=== PATIENT | male | born 1960 | race Hispanic/Latino ===

== ENCOUNTER 2017-11-16 15:11 | Inpatient (IN) | payer MEDICAID, OTHER ==
[2017-11-16 15:36] VITALS: BMI 42.0
[2017-11-16] MEDS ORDERED: Oxycodone/Acetaminophen 5/325 mg Tab PO STA (15:52)
--- NOTE | 2017-11-16 15:52 | ED PDOC ---
Arrival/HPI - General Chief Complaint: Lower Extremity Problem/Injury Time Seen by Provider: 11/16/17 15:50 Historian: Patient - History of Present Illness Narrative History of Present Illness (Text): 11/16/17 15:52 A 57 year old male, whose past medical history includes 3 herniated disks and chronic bronchitis, presents to the emergency department complaining of bilateral leg swelling for the past 10 days. Patient reports slight bleeding occurred on the way to emergency room. he is experiencing chest pain with difficulty breathing, and states he cannot lay flat for an extended length of time. Patient states he must be slightly elevated in bed when he sleep to reduce pain. Patient reports has previously taking oxcodone when treat recently abruptly stopped. Patient denies any fever, chills, nausea, vomiting, diarrhea , urinary symptoms, back pain, neck pain, headache, dizziness, or any other complaints. PMD: Dr. Garrison Donovan Time/Duration: Other (10 days) Symptom Onset: Gradual Symptom Course: Unchanged Activities at Onset: Light Context: Home Past Medical History - Provider Review Nursing Documentation Reviewed: Yes - Infectious Disease Hx of Infectious Diseases: None - Cardiac Hx Cardiac Disorders: No Hx Pacemaker: No - Neurological Hx Paralysis: No - Hematological/Oncological Hx Blood Transfusions: No Hx Blood Transfusion Reaction: No - Musculoskeletal/Rheumatological Hx Musculoskeletal Disorders: Yes Hx Back Pain: Yes - Psychiatric Hx Emotional Abuse: No Hx Physical Abuse: No Hx Substance Use: No - Surgical History Hx Cholecystectomy: Yes Hx Orthopedic Surgery: Yes (SPINAL SX) - Anesthesia Hx Anesthesia Reactions: Yes ("I HAVE A VERY HIGH PAIN TOLERANCE") - Suicidal Assessment Feels Threatened In Home Enviroment: No Family/Social History - Physician Review Nursing Documentation Reviewed: Yes Family/Social History: Unknown Family HX Smoking Status: Current Some Days Smoker Hx Alcohol Use: No Hx Substance Use: No Hx Substance Use Treatment: No Allergies/Home Meds Allergies/Adverse Reactions: Allergies gabapentin Allergy (Verified 11/16/17 21:44) RASH pregabalin [From Lyrica] Allergy (Verified 11/16/17 21:44) RASH shellfish derived Allergy (Verified 11/16/17 21:44) RASH MARKY Allergy (Uncoded 11/16/17 21:44) ANGIOEDEMA Home Medications: Home Meds Medication Instructions Recorded Confirmed Buprenorphine HCl/Naloxone HCl 1 francois SL BID 11/16/17 11/16/17 [Suboxone 8 mg-2 mg] tiZANidine [Zanaflex] 6 mg PO TID 11/16/17 11/16/17 Review of Systems - Physician Review All systems were reviewed & negative as marked: Yes - Review of Systems Constitutional: absent: Fevers, Night Sweats Respiratory: SOB (slight difficulty breathing) Cardiovascular: Chest Pain (slight chest pain), Other (bilteral leg swelling ). absent: Normal, Palpitations, Edema, Calf Pain, ALCOCER, Orthopnea, Syncope Gastrointestinal: absent: Diarrhea, Nausea, Vomiting Genitourinary Male: absent: Urinary Output Changes Musculoskeletal: absent: Back Pain, Neck Pain Skin: Cellulitis, Other (bleeding on leg). absent: Normal, Rash, Pruritis, Skin Lesions, Laceration, Abscess, Ulcer Neurological: absent: Headache, Dizziness Physical Exam Vital Signs Reviewed: Yes Vital Signs Temp Pulse Resp BP Pulse Ox 11/16/17 19:58 111/66 11/16/17 19:34 71 18 125/68 98 11/16/17 17:24 79 18 128/71 98 11/16/17 16:17 86 18 132/78 98 11/16/17 15:20 98.8 F 92 H 18 136/86 100 Temperature: Afebrile Blood Pressure: Normal Pulse: Tachycardic Respiratory Rate: Normal Appearance: Positive for: Well-Appearing, Non-Toxic, Comfortable Pain Distress: None Mental Status: Positive for: Alert and Oriented X 3 - Systems Exam Head: Present: Atraumatic, Normocephalic Pupils: Present: PERRL Extroacular Muscles: Present: EOMI Conjunctiva: Present: Normal Mouth: Present: Moist Mucous Membranes Neck: Present: Normal Range of Motion Respiratory/Chest: Present: Clear to Auscultation, Good Air Exchange. No: Respiratory Distress, Accessory Muscle Use Cardiovascular: Present: Regular Rate and Rhythm, Normal S1, S2. No: Murmurs Abdomen: No: Tenderness, Distention, Peritoneal Signs Back: Present: Normal Inspection Upper Extremity: No: Normal Inspection, Cyanosis Lower Extremity: Present: Edema (bilateral diffused pitting edema up to knees ) , Other (weeping wounsd on right interior leg ). No: Normal Inspection, CALF TENDERNESS, NORMAL PULSES, Cyanosis, Normal ROM, Alexander's Sign, Tenderness, Swelling, Erythema, Deformity, Neurovascularly Intact, Capillary Refill < 2 s Neurological: Present: GCS=15, CN II-XII Intact, Speech Normal Skin: Present: Warm, Other (Cellulitic infection). No: Dry, Rashes, Normal Color, Diaphoretic, Erythematous, Induration, Hot, Cold, Pale, Laceration, Abscess, Abrasion Psychiatric: Present: Alert, Oriented x 3, Normal Insight, Normal Concentration Medical Decision Making ED Course and Treatment: 11/16/17 16:00 Impression: 57 year old male presenting to the ED with bilteral leg swelling. Plan: -- EKG -- BNP -- Comp Metabolic Panel -- Thyroid stimulation hormone -- Troponin I -- CBC -- D Dimer -- oxycodone -- Ultrasound of duplex lower extremity vein bilaterally -- Reassess and disposition Prior Visits: Notes and results from previous visits were reviewed. Progress Notes: 11/16/17 18:[address] silverman to the hospitalist service. admit to tele, rule out CHF. patient to be admitted for diuresis, ambulatory dysfunction stemming from acute on chronic low back pain, PT and potential for rehab. Lower legs have the clinical appearance of venous stasis/congestion but clinical did not appears cellulitis. will defer abx to inpatient team. 11/20/17 11:53 - Lab Interpretations Lab Results: 11/16/17 16:19 11/16/17 16:19 Lab Results 11/16/17 16:19: TSH 3rd Generation 6.21 H 11/16/17 16:19: Sodium 145, Potassium 3.9, Chloride 99, Carbon Dioxide 34 H, Anion Gap 16, BUN 16, Creatinine 0.9, Est GFR ( Amer) > 60, Est GFR (Non- Af Amer) > 60, Random Glucose 89, Calcium 9.2, Magnesium 2.0, Total Bilirubin 0.5, AST 37, ALT 28, Alkaline Phosphatase 83, Troponin I < 0.01, NT-Pro-B Natriuret Pep 67.7, Total Protein 7.3, Albumin 4.4, Globulin 2.9, Albumin/ Globulin Ratio 1.5 11/16/17 16:19: D-Dimer, Quantitative 279 H 11/16/17 16:19: WBC 10.7 D, RBC 4.60, Hgb 14.4, Hct 42.7, MCV 92.8, MCH 31.3, MCHC 33.7, RDW 13.3, Plt Count 254, MPV 9.5, Gran % 43.1 L, Lymph % (Auto) 45.8 H, Stewart % (Auto) 9.0 H, Eos % (Auto) 1.7, Baso % (Auto) 0.4, Gran # 4.63, Lymph # (Auto) 4.9 H, Stewart # (Auto) 1.0 H, Eos # (Auto) 0.2, Baso # (Auto) 0.04 - RAD Interpretation Radiology Orders: 11/16/17 15:51 DUPLEX LOWER EXTRM VEIN BILAT [US] Stat 11/16/17 16:45 ANGIO CHEST PE PROTOCOL [CT] Stat - EKG Interpretation EKG Interpretation (Text): 11/16/17 16:53 1612: sinus rhythm at 85 bpm, nml qrs, nml axis, poor r wave progression, no acute sttw abn Interpreted by ED Physician: Yes - Medication Orders Current Medication Orders: Docusate Sodium (Colace) 100 mg PO DAILY [facility] Last Admin: 11/20/17 09:43 Dose: Not Given Non-Admin Reason: Patient Refused Furosemide (Lasix) 20 mg IVP Q12 [facility] Last Admin: 11/20/17 09:37 Dose: 20 mg MAR Blood Pressure Document 11/20/17 09:37 JANETTE (Rec: 11/20/17 09:38 JANETTE [facility] [id number]) Blood Pressure Blood Pressure (100/60-150/90) 127/71 IVP Administration Document 11/20/17 09:37 JANETTE (Rec: 11/20/17 09:38 JANETTE [facility] [id number]) Charges for Administration # of IVP Administrations 1 Heparin Sodium (Porcine) (Heparin) 5,000 units SC Q12 JUAN PRN Reason: Protocol Last Admin: 11/20/17 09:36 Dose: 5,000 units Subcutaneous Administrations Document 11/20/17 09:36 JANETTE (Rec: 11/20/17 09:37 JANETTE [facility] [id number]) Injection Site MAR Injection Site Right Abdomen Charges for Administration # of Subcutaneous Administrations 1 Vancomycin HCl (Vancomycin 1gm) 1 gm in 250 mls @ 167 mls/hr IVPB Q12H JUAN PRN Reason: Protocol Last Admin: 11/20/17 09:41 Dose: 167 mls/hr eMAR Start Stop Document 11/20/17 09:41 JANETTE (Rec: 11/20/17 09:41 JANETTE [facility] [id number]) Intravenous Solution Start Date 11/20/17 Start Time 09:41 Lactic Acid (Lac-Hydrin 12% Lotion (225 G)) 1 gm EXT QD7 JUAN Last Admin: 11/20/17 09:36 Dose: 1 applic Levalbuterol HCl (Xopenex) 1.25 mg IH [id number] PRN PRN Reason: Shortness of Breath Lidocaine (Lidoderm) 1 ea TD DAILY JUAN Last Admin: 11/19/17 09:13 Dose: 1 ea MAR Transdermal Patch Site Document 11/19/17 09:13 [id number] (Rec: 11/19/17 09:13 [id number]) Transdermal Patch Site Transdermal Patch Site Right Lower Back Morphine Sulfate (Morphine) 2 mg IVP Q4H PRN PRN Reason: Pain, moderate (4-7) Last Admin: 11/20/17 09:39 Dose: 2 mg MAR Pain Assessment Document 11/20/17 09:39 JANETTE (Rec: 11/20/17 09:39 JANETTE [facility] [id number]) Pain Reassessment Is this a pain reassessment? No Presence of Pain Presence of Pain Yes Pain Scale Used Pain Scale Used Numeric Location Left, Right or Bilateral Bilateral Pain Location Body Site Leg Description Description Intermittent Intensity of Pain at present 7 IVP Administration Document 11/20/17 09:39 JANETTE (Rec: 11/20/17 09:39 JANETTE [facility] [id number]) Charges for Administration # of IVP Administrations 1 Pantoprazole Sodium (Protonix Ec Tab) 40 mg PO 0600 [facility] Last Admin: 11/20/17 05:24 Dose: 40 mg Discontinued Medications Furosemide (Lasix) 40 mg IVP STAT STA Stop: 11/16/17 18:20 Last Admin: 11/16/17 19:58 Dose: 20 mg Comments: 20 given BP 111/66 MAR Blood Pressure Document 11/16/17 19:58 LA (Rec: 11/16/17 19:59 LA [id number]) Blood Pressure Blood Pressure (100/60-150/90) 111/66 IVP Administration Document 08/23/18 19:58 LA (Rec: 11/16/17 19:59 LA [id number]) Charges for Administration # of IVP Administrations 1 Furosemide (Lasix) 20 mg IVP Q8 JUAN Levothyroxine Sodium (Synthroid) 25 mcg PO 0600 JUAN Last Admin: 11/20/17 05:23 Dose: 25 mcg Morphine Sulfate (Morphine) 4 mg IVP Q4H PRN PRN Reason: Pain, severe (8-10) Last Admin: 11/17/17 06:48 Dose: 4 mg [facility] Pain Assessment Document 11/17/17 06:48 CDL (Rec: 11/17/17 06:48 [id number][facility] Pain Reassessment Is this a pain reassessment? No Sleep Is patient sleeping during reassessment? No Presence of Pain Presence of Pain Yes Pain Scale Used Pain Scale Used Numeric Location Upper or Lower Lower Pain Location Body Site Back Description Description Constant Intensity of Pain at present 8 Pain Behavior Restlessness Alleviating Factors/Management Medication Techniques Alleviating Factors Medication IVP Administration Document 11/17/17 06:48 CDL (Rec: 11/17/17 06:48 CDL [facility] [id number]) Charges for Administration # of IVP Administrations 1 Oxycodone/Acetaminophen (Percocet 5/325 Mg Tab) 2 tab PO STAT STA Stop: 11/16/17 15:53 Last Admin: 11/16/17 16:16 Dose: 2 tab [facility] Pain Assessment Document 11/16/17 16:16 LA (Rec: 11/16/17 16:16 LA [id number]) Pain Reassessment Is this a pain reassessment? No Sleep Is patient sleeping during reassessment? No Presence of Pain Presence of Pain Yes Pain Scale Used Pain Scale Used Numeric Location Left, Right or Bilateral Bilateral Upper or Lower Lower Pain Location Body Site Leg Description Description Intermittent Intensity of Pain at present 5 Re-Assess: MAR Pain Assessment Document 11/16/17 17:16 LA (Rec: 11/16/17 19:44 LA [id number]) Pain Reassessment Is this a pain reassessment? Yes Sleep Is patient sleeping during reassessment? No Presence of Pain Presence of Pain No Pneumococcal Polyvalent Vaccine (Pneumovax 23 Vaccine) 0.5 ml IM .ONCE ONE Stop: 08/23/18 23:40 - Scribe Statement The provider has reviewed the documentation as recorded by the Francisco Parker All medical record entries made by the Scribe were at my direction and personally dictated by me. I have reviewed the chart and agree that the record accurately reflects my personal performance of the history, physical exam, medical decision making, and the department course for this patient. I have also personally directed, reviewed, and agree with the discharge instructions and disposition. Disposition/Present on Arrival - Present on Arrival Any Indicators Present on Arrival: No History of DVT/PE: No History of Uncontrolled Diabetes: No Urinary Catheter: No History of Decub. Ulcer: No History Surgical Site Infection Following: None - Disposition Have Diagnosis and Disposition been Completed?: Yes Diagnosis: Edema Disposition: HOSPITALIZED Disposition Time: 18:23 Patient Plan: Admission Patient Problems: Current Active Problems Problem Status Onset Edema Acute Condition: STABLE
[2017-11-16 16:32] LABS: BASO # 0.04 K/mm3 (0.0-2.0); BASO % 0.4 % (0.0-3.0); EOS # 0.2 (0.0-0.7); EOS % 1.7 % (1.5-5.0); GRAN # 4.63 (1.4-6.5); GRAN % 43.1 % (50.0-68.0); HEMOGLOBIN 14.4 g/dL (14.0-18.0); LYMPH # 4.9 (1.2-3.4); LYMPH % 45.8 % (22.0-35.0); MEAN CELL VOLUME 92.8 fl (80.0-105.0); MEAN CORPUSCULAR HEMOGLOBIN 31.3 pg (25.0-35.0); MEAN CORPUSCULAR HGB CONC 33.7 g/dl (31.0-37.0); MEAN PLATELET VOLUME 9.5 fl (7.0-11.0); RBC 4.6 10^6/uL (3.5-6.1); RED CELL DISTRIBUTION WIDTH 13.3 % (11.5-14.5); WHITE BLOOD COUNT 10.7 10^3/ul (4.5-11.0)
[2017-11-16 16:37] LABS: ALB/GLOB RATIO 1.5 (1.1-1.8); ALBUMIN 4.4 g/dL (3.0-4.8); ALT/SGPT 28 U/L (7-56); AST/SGOT 37 U/L (17-59); BLOOD UREA NITROGEN 16 mg/dL (7-21); CALCIUM 9.2 mg/dL (8.4-10.5); GFR NON-AFRICAN AMERICAN > 60
[2017-11-16 16:49] LABS: B-TYPE NATRIURETIC PEPTIDE 67.7 pg/mL (0-450); TROPONIN I < 0.01 ng/mL
--- NOTE | 2017-11-16 17:59 | US ---
HISTORY: Leg pain and swelling. Evaluate for DVT PHYSICIAN(S): Blade Parekh MD. TECHNIQUE: Duplex sonography and color-flow Doppler with graded compression were used to evaluate the deep venous systems of both lower extremities. The exam is limited by edema. FINDINGS: The visualized deep venous systems of both lower extremities are sonographically normal and compressible. Normal wave forms and augmentation are seen. There is no sonographic evidence for deep venous thrombosis in the visualized segments of both lower extremities. IMPRESSION: No sonographic evidence for deep venous thrombosis in the visualized segments of both lower extremities.
--- NOTE | 2017-11-16 18:09 | CT ---
CTA chest PE protocol Indication: Pulmonary embolism Technique: Contiguous axial images were obtained through the chest with intravenous contrast enhancement. Sagittal and coronal reconstructions were generated and reviewed. This CT exam was performed using 1 or more of the following dose reduction techniques: Automated exposure control, adjustment of the MAA and/or kV according to patient size, and/or use of iterative reconstruction technique. IV Contrast: 123 mL Omnipaque 350 Radiation dose (DLP): 565.68 MGy-cm. Comparison: Lung screening low dose CT performed 04/03/15 Findings: Visualized portions of the inferior thyroid gland appear unremarkable. The mediastinal and hilar vascular structures appear within normal limits. The heart appears within normal limits of size. No large central or segmental pulmonary embolus evident. No focal consolidation. No pleural effusion. No pneumothorax. No suspicious pulmonary nodules measuring greater than 5 mm. Limited visualized portions of the upper abdomen: Cholecystectomy. Degenerative changes of the spine. Impression: No large central or segmental pulmonary embolus identified.
--- NOTE | 2017-11-16 18:53 | CARD ---
APPROVED REPORT Date of service: 11/16/2017 EKG Measurement Heart [id number] CA [id number] [id number] <Conclusion> Sinus rhythm with premature ventricular complexes or fusion complexes Possible Anterior infarct, age undetermined Abnormal ECG
--- NOTE | 2017-11-16 22:07 | CP.PCM.HP ---
History of Present Illness - History of Present Illness History of Present Illness: Pepper Cid, PGY-1, Internal Medicine History and Physical for Dr. Norwood CC: bilateral lower extremity hyperpigmentation and swelling 57 year old male with past medical history of chronic bronchitis, substance abuse, and 3 herniated disks presents with bilateral lower extremity hyperpigmentation, edema, and pain. Patient reports that the swelling started 10 days ago. Patient reports throbbing pain started when bilateral lower extremity edema started. Patient has had difficulty walking the past few days due to severity of the swelling. Patient reports warmth on bilateral lower extremities when the swelling first began but reported that now the extremities are cool. Patient reports mild drainage from the right lower extremity with yellow discharge. Patient reports having bilateral lower extremity swelling in the past and was treated successfully with lasix. Patient reports no exacerbating or remitting factors. Patient also reports fever, back pain that radiates down his left leg with associated numbness and tingling, and dizziness. Patient reports frontal headache for that started 10 days ago and stopped 6 days ago. Pain did not radiate to his neck and was relieved with ibuprofen. Patient reports 40-50 lb weight gain. Patient currently denies chest pain, heart palpitations, shortness of breath, nausea, vomiting, constipation, diarrhea, abdominal pain, dysuria, and hematuria. PMH: as stated above PSH: cholecystectomy, tonsillectomy Allergies: gabapentin, pregabalin, shellfish FMHx: Mother from breast cancer and HTN. SHx: smoked 1/2 ppd for 20 years. Stopped 8 months ago. Denies alcohol and recreational drug history Medication: reports taking oxycontin 120 mg Q8, percocet 10/325, and zanaplex for sleep. PMD: Dr. Karyna Donovan Present on Admission - Present on Admission Any Indicators Present on Admission: No History of DVT/PE: No History of Uncontrolled Diabetes: No Review of Systems - Constitutional Constitutional: Weight Gain. absent: Anorexia, Chills, Fever - EENT Eyes: absent: Blurred Vision Ears: absent: Ear Pain Nose/Mouth/Throat: absent: Epistaxis - Cardiovascular Cardiovascular: Diaphoresis, Edema. absent: Chest Pain - Respiratory Respiratory: absent: Dyspnea - Gastrointestinal Gastrointestinal: absent: Abdominal Pain, Constipation, Diarrhea, Nausea, Vomiting - Genitourinary Genitourinary: absent: Dysuria, Hematuria - Musculoskeletal Musculoskeletal: Abnormal Gait, Back Pain, Radiating Pain into Limb - Integumentary Integumentary: Wounds Additional comments: hyperpigmentation and swelling of bilateral lower extremities - Neurological Neurological: Numbness, Tingling - Psychiatric Psychiatric: absent: Anxiety, Depression Past Patient History - Infectious Disease Hx of Infectious Diseases: None - Past Social History Smoking Status: Current Some Days Smoker - CARDIAC Hx Cardiac Disorders: No Hx Pacemaker: No - NEUROLOGICAL Hx Paralysis: No - HEMATOLOGICAL/ONCOLOGICAL Hx Blood Transfusions: No Hx Blood Transfusion Reaction: No - MUSCULOSKELETAL/RHEUMATOLOGICAL Hx Musculoskeletal Disorders: Yes Hx Back Pain: Yes - PSYCHIATRIC Hx Emotional Abuse: No Hx Physical Abuse: No Hx Substance Use: No - SURGICAL HISTORY Hx Cholecystectomy: Yes Hx Orthopedic Surgery: Yes (SPINAL SX) - ANESTHESIA Hx Anesthesia Reactions: Yes ("I HAVE A VERY HIGH PAIN TOLERANCE") Meds Allergies/Adverse Reactions: Allergies Allergy/AdvReac Type Severity Reaction Status Date / Time gabapentin Allergy RASH Verified 11/16/17 21:44 pregabalin [From Lyrica] Allergy RASH Verified 11/16/17 21:44 shellfish derived Allergy RASH Verified 11/16/17 21:44 MARKY Allergy ANGIOEDEMA Uncoded 11/16/17 21:44 Physical Exam - Constitutional Appears: Well, Non-toxic, No Acute Distress - Head Exam Head Exam: ATRAUMATIC, NORMAL INSPECTION, NORMOCEPHALIC - Eye Exam Eye Exam: EOMI, PERRL - ENT Exam ENT Exam: Mucous Membranes Moist - Respiratory Exam Respiratory Exam: Clear to Auscultation Bilateral, NORMAL BREATHING PATTERN - Cardiovascular Exam Cardiovascular Exam: REGULAR RHYTHM, RRR - GI/Abdominal Exam GI & Abdominal Exam: Normal Bowel Sounds, Soft. absent: Tenderness - Extremities Exam Additional comments: bilateral lower extremity hyperpigmentation, cool to touch, multiple abrasions on right lower extremity with minimal yellow drainage, +3-4 pitting edema bilaterally - Back Exam Back exam: paraspinal tenderness (right sided lumbar) - Neurological Exam Neurological exam: Alert, CN II-XII Intact, Oriented x3 - Psychiatric Exam Psychiatric exam: Normal Affect, Normal Mood - Skin Skin Exam: Dry, Intact Additional comments: bilateral lower extremity hyperpigmentation. lesions present on right lower extremity with yellow discharge Results - Vital Signs Recent Vital Signs: Last Vital Signs Temp 98.7 F 11/16/17 20:00 Pulse 72 11/16/17 20:00 Resp 18 11/16/17 20:00 BP 134/92 H 11/16/17 21:56 Pulse Ox 99 11/16/17 20:00 - Labs Result Diagrams: 11/16/17 16:19 11/17/17 05:30 - Impressions Impression: NSR with PVC HR: 85 TN: 140 QRS: 80 QTc: 416 Assessment & Plan - Assessment and Plan (Free Text) Assessment: 57 year old male with past medical history of chronic bronchitis and 3 herniated disks presents with bilateral lower extremity hyperpigmentation, edema , and pain. Patient will be admitted for bilateral lower extremity edema 2/2 to chronic venous insufficiency vs. peripheral artery disease. Plan: Bilateral lower extremity edema 2/2 to chronic venous insufficiency vs. peripheral artery disease vs. myxedema -Patient with bilateral lower extremity hyperpigmentation, edema, cool to touch -Lower extremity ultrasound: shows no evidence of DVT -Wound care consulted -TSH: 6.21. T4 ordered to evaluate for possible myxedema -Strict I and Os -Daily weight -Elevate legs to use gravity to enhance circulation -lasix 20 mg IVP Q12 Questionable CHF -No previous echocardiogram in [facility] records. -Patient has had multiple episodes of bilateral lower extremity edema treated with lasix. -HgbA1c, lipid panel ordered to evaluate for possible etiology of CHF. -EKG: NSR with PVC. HR: 85 -Trop<0.01 -Normal LFTs, so unlikely hepatic congestion -Echocardiogram ordered to evaluate for possible CHF and etiology of CHF -BNP ordered -lasix 20 mg IVP Q12 Chronic bronchitis -O2 saturation: 99% on room air -Xopenex PRN ordered. -Continue to monitor History of constipation -Docusate 100 mg daily History of herniated disks -Positive straight left raise test on left -Patient has been on opiod medication at home -Patient started on morphine 4 mg Q4PRN for pain. -Lidocaine patch 5% daily History of opiod abuse -Patient started on morphine 4 mg Q4PRN for pain -Lidocaine patch 5% daily -Patient counseled about importance of opiod use cessation. -Patient takes suboxone 8mg-2mg BID at home. Elevated D-Dimer -D-Dimer: 279. -Patient has bilateral lower extremity edema. -Bilateral duplex lower extremity ultrasound shows no sign of DVT -CTA of chest: no large central or segmental pulmonary embolus -DVT prophylaxis: heparin 5000 U SubQ daily GI prophylaxis: protonix 40 mg daily Patient plan discussed with Dr. Norwood. - Date & Time Date: 11/16/17 Time: 22:30
[2017-11-16] MEDS ORDERED: Levalbuterol 1.25 MG/3 ML Inhal Soln UD IH PRN (22:38)
[2017-11-16] MEDS ORDERED: Pneumococcal 23-Valent Vaccine IM ONE (23:39)
[2017-11-17] MEDS: Morphine 4 mg/ml ISec IVP PRN ×2 (00:19→06:48)
--- NOTE | 2017-11-17 01:19 | CP.PCM.PN ---
Subjective - Date & Time of Evaluation Date of Evaluation: 11/17/17 Time of Evaluation: 01:17 - Subjective Subjective: Patient was seen for follow up. Medical record was reviewed. Has already been evaluated by team. He has no complaints now. Is not in acute distress. Has been ambulating. Vital signs are stable. Rx, Observe. Cont.Management. Objective - Vital Signs/Intake and Output Vital Signs (last 24 hours): Temp Pulse Resp BP Pulse Ox 98.7 F 72 18 134/92 H 99 11/16/17 23:14 11/16/17 23:14 11/16/17 23:14 11/16/17 23:14 11/16/17 20:00 - Medications Medications: Current Medications Docusate Sodium (Colace) 100 mg PO DAILY [facility] Furosemide (Lasix) 20 mg IVP Q12 [facility] Last Admin: 11/16/17 21:56 Dose: 20 mg Heparin Sodium (Porcine) (Heparin) 5,000 units SC Q12 JUAN PRN Reason: Protocol Last Admin: 11/16/17 21:55 Dose: 5,000 units Levalbuterol HCl (Xopenex) 1.25 mg IH [id number] PRN PRN Reason: Shortness of Breath Lidocaine (Lidoderm) 1 ea TD DAILY [facility] Morphine Sulfate (Morphine) 4 mg IVP Q4H PRN PRN Reason: Pain, severe (8-10) Last Admin: 11/17/17 00:19 Dose: 4 mg Pantoprazole Sodium (Protonix Ec Tab) 40 mg PO 0600 [facility]
[2017-11-17] MEDS: Pantoprazole 40 mg EC Tab PO SCH (05:42)
[2017-11-17 06:43] LABS: BASO # 0.04 K/mm3 (0.0-2.0); BASO % 0.4 % (0.0-3.0); EOS # 0.2 (0.0-0.7); EOS % 1.9 % (1.5-5.0); GRAN # 3.67 (1.4-6.5); GRAN % 40.3 % (50.0-68.0); HEMOGLOBIN 13.2 g/dL (14.0-18.0); LYMPH # 4.4 (1.2-3.4); LYMPH % 47.8 % (22.0-35.0); MEAN CELL VOLUME 92.8 fl (80.0-105.0); MEAN CORPUSCULAR HEMOGLOBIN 30.8 pg (25.0-35.0); MEAN CORPUSCULAR HGB CONC 33.2 g/dl (31.0-37.0); MEAN PLATELET VOLUME 9.4 fl (7.0-11.0); MONO # 0.9 (0.1-0.6); MONO % 9.6 % (1.0-6.0); RBC 4.28 10^6/uL (3.5-6.1); RED CELL DISTRIBUTION WIDTH 13.5 % (11.5-14.5); WHITE BLOOD COUNT 9.1 10^3/ul (4.5-11.0)
[2017-11-17 06:48] LABS: ALB/GLOB RATIO 1.4 (1.1-1.8); ALBUMIN 3.6 g/dL (3.0-4.8); ALT/SGPT 23 U/L (7-56); AST/SGOT 23 U/L (17-59); BLOOD UREA NITROGEN 20 mg/dL (7-21); CALCIUM 8.6 mg/dL (8.4-10.5); GFR NON-AFRICAN AMERICAN > 60; HDL CHOLESTEROL 44 mg/dL (29-60)
[2017-11-17 07:10] LABS: LDL CHOLESTEROL 87 mg/dL (0-129)
[2017-11-17] MEDS ORDERED: Morphine 4 mg/ml ISec IVP PRN (10:22)
[2017-11-17] MEDS: Lidocaine 5% Patch TD SCH (10:34)
[2017-11-17] MEDS: Vancomycin 1gm in NS 250ml 1 GM/250 ML BAG IVPB SCH ×2 (10:34→21:53)
[2017-11-17] MEDS ORDERED: Piperacillin/Tazobact 3.375 gm 100 ML IVPB SCH (12:00)
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
--- NOTE | 2017-11-17 14:30 | CARD ---
APPROVED REPORT Date of service: 11/17/2017 EXAM: Two-dimensional and M-mode echocardiogram with Doppler and color Doppler. INDICATION Congestive Heart Failure 2D DIMENSIONS Left Atrium (2D)4.1 (1.6-4.0cm)IVSd1.2 (0.7-1.1cm) LVDd4.8 (3.9-5.9cm)PWd1.2 (0.7-1.1cm) LVDs3.2 (2.5-4.0cm)FS (%) 33.8 % LVEF (%)62.6 (>50%) M-Mode DIMENSIONS Aortic Root3.30 (2.2-3.7cm)Aortic Cusp Exc.1.70 (1.5-2.0cm) Aortic Valve AoV Peak Rcsydyqq436.0cm/Deepthi Peak GR.10mmHg Mitral Valve MV E Jfujsnfx09.2cm/sMV A Qrjpembd05.3cm/sE/A ratio0.7 TDI Lateral E' Peak V9.26cm/sMedial E' Peak V7.90cm/sE/Lateral E'7.0 E/Medial E'8.3 Pulmonary Valve PV Peak Nubxyrar70.9cm/sPV Peak Grad.3mmHg Tricuspid Valve TR Peak Ntmusqas131xn/sRAP [id number] Peak Gr.7mmHg [id number] LEFT VENTRICLE The left ventricle is normal size. There is normal left ventricular wall thickness. The left ventricular function is normal. The left ventricular ejection fraction is within the normal range. There is normal LV segmental wall motion. Transmitral Doppler flow pattern is Grade I-abnormal relaxation pattern. RIGHT VENTRICLE The right ventricle is normal size. There is normal right ventricular wall thickness. The right ventricular systolic function is normal. ATRIA The left atrium is borderline dilated. The right atrium size is normal. AORTIC VALVE The aortic valve is not well visualized. No aortic regurgitation is present. There is no aortic valvular stenosis. MITRAL VALVE The mitral valve is not well visualized. There is no mitral valve regurgitation noted. There is no mitral valve stenosis. TRICUSPID VALVE The tricuspid valve is normal in structure. There is no tricuspid valve regurgitation noted. PULMONIC VALVE The pulmonary valve is normal in structure. There is no pulmonic valvular regurgitation. GREAT VESSELS The aortic root is normal in size. The IVC is normal in size and collapses >50% with inspiration. PERICARDIAL EFFUSION There is a trace loculated anterior pericardial effusion. <Conclusion> The left ventricle is normal size. There is normal left ventricular wall thickness. The left ventricular function is normal. The left ventricular ejection fraction is within the normal range. There is normal LV segmental wall motion. Transmitral Doppler flow pattern is Grade I-abnormal relaxation pattern.
--- NOTE | 2017-11-17 16:01 | CP.PCM.CON ---
<Jocelyn Montgomery - Last Filed: 11/17/17 15:53> History of Present Illness - History of Present Illness History of Present Illness: Podiatry Consult note: Dr. Pena 57 year old male with PMHx of 3 herniated disks and chronic bronchitis was seen and evaluated for bilateral LE edema. Patient reports that he has his legs swollen for a long time. States that he felt some chest pain with breathing difficulty when presenting to the ED. Patient also complains that he was on oxcodone when treatment recently abruptly stopped. Patient denies of recent F/N/ V/C. Denies of any other pedal complains at this time. PMHx: 3 herniated disks and chronic bronchitis PSHx: cholecystectomy, tonsillectomy Allergies: gabapentin, pregabalin, shellfish SHx: smoked 1/2 ppd for 20 years. Stopped 8 months ago. Denies alcohol and recreational drug history Review of Systems - Constitutional Constitutional: As Per HPI Past Patient History - Infectious Disease Hx of Infectious Diseases: None - Past Social History Smoking Status: Current Some Days Smoker - CARDIAC Hx Cardiac Disorders: No Hx Pacemaker: No - PULMONARY Hx Respiratory Disorders: Yes (USED TO SMOKE CIGARETTES ,QUIT.) Hx Chronic Obstructive Pulmonary Disease (COPD): Yes - NEUROLOGICAL Hx Paralysis: No - HEENT Hx HEENT Problems: No - RENAL Hx Chronic Kidney Disease: No - ENDOCRINE/METABOLIC Hx Endocrine Disorders: No - HEMATOLOGICAL/ONCOLOGICAL Hx Blood Transfusions: No Hx Blood Transfusion Reaction: No - INTEGUMENTARY Hx Dermatological Problems: Yes Other/Comment: 11-16-17 BILATERAL LE PITTING EDEMA +3 UP TO HIS KNEES. WEEPING WOUND TO RIGHT CAVAZOS BONE.SOME BLOOD. ERYTHEMA. - MUSCULOSKELETAL/RHEUMATOLOGICAL Hx Musculoskeletal Disorders: Yes Hx Back Pain: Yes - GASTROINTESTINAL Hx Gastrointestinal Disorders: Yes (CONSTIPATION) Hx Gall Bladder Disease: Yes (CHOLEYCSTECTOMY) - GENITOURINARY/GYNECOLOGICAL Hx Genitourinary Disorders: No - PSYCHIATRIC Hx Emotional Abuse: No Hx Physical Abuse: No Hx Substance Use: No - SURGICAL HISTORY Hx Cholecystectomy: Yes Hx Orthopedic Surgery: Yes (SPINAL SX) - ANESTHESIA Hx Anesthesia Reactions: Yes ("I HAVE A VERY HIGH PAIN TOLERANCE") Meds Allergies/Adverse Reactions: Allergies Allergy/AdvReac Type Severity Reaction Status Date / Time gabapentin Allergy RASH Verified 11/16/17 21:44 pregabalin [From Lyrica] Allergy RASH Verified 11/16/17 21:44 shellfish derived Allergy RASH Verified 11/16/17 21:44 MARKY Allergy ANGIOEDEMA Uncoded 11/16/17 21:44 - Medications Medications: Current Medications Docusate Sodium (Colace) 100 mg PO DAILY [facility] Last Admin: 11/17/17 10:00 Dose: Not Given Furosemide (Lasix) 20 mg IVP Q12 [facility] Last Admin: 11/17/17 10:35 Dose: 20 mg Heparin Sodium (Porcine) (Heparin) 5,000 units SC Q12 JUAN PRN Reason: Protocol Last Admin: 11/17/17 10:35 Dose: 5,000 units Vancomycin HCl (Vancomycin 1gm) 1 gm in 250 mls @ 167 mls/hr IVPB Q12H [facility] PRN Reason: Protocol Last Admin: 11/17/17 10:34 Dose: 167 mls/hr Levalbuterol HCl (Xopenex) 1.25 mg IH [id number] PRN PRN Reason: Shortness of Breath Levothyroxine Sodium (Synthroid) 25 mcg PO 0600 [facility] Lidocaine (Lidoderm) 1 ea TD DAILY [facility] Last Admin: 11/17/17 10:34 Dose: 1 ea Morphine Sulfate (Morphine) 2 mg IVP Q4H PRN PRN Reason: Pain, moderate (4-7) Pantoprazole Sodium (Protonix Ec Tab) 40 mg PO 0600 [facility] Last Admin: 11/17/17 05:42 Dose: 40 mg Physical Exam - Constitutional Appears: Well, Non-toxic, No Acute Distress - Extremities Exam Additional comments: Bilateral LE exam VASC: DP/PT pulses are faintly palpable, Cap refill time: < 3 sec to all digits , Temp gradient: cool to cool from proximal to distal, +3 pitting edema noted diffusely on bilateral LE and dorsum of the foot DERM: no open lesions, no erythema, no clinical suspicion of active infection NEURO: Protective sensation grossly intact ORTHO: no pain on palpation of the calf, MMT: 5/5 in all 4 direction at the ankle joint - Neurological Exam Neurological exam: Alert, Oriented x3 - Psychiatric Exam Psychiatric exam: Normal Affect, Normal Mood Results - Vital Signs Recent Vital Signs: Last Vital Signs Temp 98.7 F 11/17/17 12:00 Pulse 85 08/24/18 12:00 Resp 17 11/17/17 12:00 BP 120/74 11/17/17 12:00 Pulse Ox 95 11/17/17 06:00 - Labs Result Diagrams: 11/17/17 05:30 11/17/17 05:30 Labs: Laboratory Results - last 24 hr 11/16/17 11/17/17 11/17/17 23:15 05:30 05:30 WBC RBC Hgb Hct MCV MCH MCHC RDW Plt Count MPV Gran % Lymph % (Auto) Tucker % (Auto) Eos % (Auto) Baso % (Auto) Gran # Lymph # (Auto) [place] # (Auto) Eos # (Auto) Baso # (Auto) Sodium 140 Potassium 3.7 Chloride 98 Carbon Dioxide 35 H Anion Gap 11 BUN 20 Creatinine 0.9 Est GFR ( Amer) > 60 Est GFR (Non-Af Amer) > 60 Random Glucose 87 Hemoglobin A1c Calcium 8.6 Phosphorus 3.8 Magnesium 1.9 Total Bilirubin 0.4 AST 23 ALT 23 Alkaline Phosphatase 66 NT-Pro-B Natriuret Pep 56.7 Total Protein 6.1 Albumin 3.6 Globulin 2.5 Albumin/Globulin Ratio 1.4 Triglycerides 85 Cholesterol 157 LDL Cholesterol Direct 87 HDL Cholesterol 44 Free T4 0.86 11/17/17 11/17/17 05:30 05:30 WBC 9.1 RBC 4.28 Hgb 13.2 L Hct 39.7 L MCV 92.8 MCH 30.8 MCHC 33.2 RDW 13.5 Plt Count 216 MPV 9.4 Gran % 40.3 L Lymph % (Auto) 47.8 H [place] % (Auto) 9.6 H Eos % (Auto) 1.9 Baso % (Auto) 0.4 Gran # 3.67 Lymph # (Auto) 4.4 H Tucker # (Auto) 0.9 H Eos # (Auto) 0.2 Baso # (Auto) 0.04 Sodium Potassium Chloride Carbon Dioxide Anion Gap BUN Creatinine Est GFR ( Amer) Est GFR (Non-Af Amer) Random Glucose Hemoglobin A1c 5.3 Calcium Phosphorus Magnesium Total Bilirubin AST ALT Alkaline Phosphatase NT-Pro-B Natriuret Pep Total Protein Albumin Globulin Albumin/Globulin Ratio Triglycerides Cholesterol LDL Cholesterol Direct HDL Cholesterol Free T4 Assessment & Plan - Assessment and Plan (Free Text) Assessment: 57 year old male was evaluated for b/l LE edema secondary to venous insufficiency and possible CHF Plan: Patient seen and evaluated Discussed with attending Dr. Pena Labs, vitals and charts reviewed - afebrile, no leukocytosis Strict I/O Continue Lasix CLAIR bandages applied to b/l LE Compression stocking b/l LASHON/PVR ordered Educated patient to elevate b/l LE whenever possible Patient is stable from podiatry standpoint Thank you for the podiatry consult and allowing to take part in patient care - Date & Time Date: 11/17/17 Time: 16:08 <Kristopher Pena - Last Filed: 11/18/17 08:13> Meds - Medications Medications: Current Medications Docusate Sodium (Colace) 100 mg PO DAILY [facility] Last Admin: 11/17/17 10:00 Dose: Not Given Furosemide (Lasix) 20 mg IVP Q12 JUAN Last Admin: 11/17/17 21:16 Dose: 20 mg Heparin Sodium (Porcine) (Heparin) 5,000 units SC Q12 JUAN PRN Reason: Protocol Last Admin: 11/17/17 21:17 Dose: 5,000 units Vancomycin HCl (Vancomycin 1gm) 1 gm in 250 mls @ 167 mls/hr IVPB Q12H JUAN PRN Reason: Protocol Last Admin: 11/17/17 21:53 Dose: 167 mls/hr Levalbuterol HCl (Xopenex) 1.25 mg IH [id number] PRN PRN Reason: Shortness of Breath Levothyroxine Sodium (Synthroid) 25 mcg PO 0600 [facility] Last Admin: 11/18/17 05:36 Dose: 25 mcg Lidocaine (Lidoderm) 1 ea TD DAILY [facility] Last Admin: 11/17/17 10:34 Dose: 1 ea Morphine Sulfate (Morphine) 2 mg IVP Q4H PRN PRN Reason: Pain, moderate (4-7) Last Admin: 11/17/17 21:04 Dose: 2 mg Pantoprazole Sodium (Protonix Ec Tab) 40 mg PO 0600 [facility] Last Admin: 11/18/17 05:40 Dose: 40 mg Results - Vital Signs Recent Vital Signs: Last Vital Signs Temp 98.7 F 11/18/17 06:00 Pulse 83 11/18/17 06:00 Resp 19 11/18/17 06:00 BP 150/103 H 11/18/17 06:00 Pulse Ox 94 L 11/18/17 06:00 - Labs Result Diagrams: 11/18/17 06:30 11/18/17 06:30 Labs: Laboratory Results - last 24 hr 11/17/17 11/17/17 11/18/17 05:30 05:30 06:30 WBC 7.5 RBC 4.36 Hgb 13.4 L Hct 39.8 L MCV 91.3 MCH 30.7 MCHC 33.7 RDW 13.1 Plt Count 223 MPV 9.8 Gran % 53.8 Lymph % (Auto) 35.3 H Tucker % (Auto) 8.7 H Eos % (Auto) 1.9 Baso % (Auto) 0.3 Gran # 4.01 Lymph # (Auto) 2.6 Tucker # (Auto) 0.7 H Eos # (Auto) 0.1 Baso # (Auto) 0.02 Sodium Potassium Chloride Carbon Dioxide Anion Gap BUN Creatinine Est GFR ( Amer) Est GFR (Non-Af Amer) Random Glucose Hemoglobin A1c 5.3 Calcium Phosphorus Magnesium Total Bilirubin AST ALT Alkaline Phosphatase Total Protein Albumin Globulin Albumin/Globulin Ratio Free T4 0.86 11/18/17 06:30 WBC RBC Hgb Hct MCV MCH MCHC RDW Plt Count MPV Gran % Lymph % (Auto) Tucker % (Auto) Eos % (Auto) Baso % (Auto) Gran # Lymph # (Auto) Tucker # (Auto) Eos # (Auto) Baso # (Auto) Sodium 139 Potassium 3.6 Chloride 97 L Carbon Dioxide 33 Anion Gap 13 BUN 16 Creatinine 0.8 Est GFR ( Amer) > 60 Est GFR (Non-Af Amer) > 60 Random Glucose 97 Hemoglobin A1c Calcium 8.7 Phosphorus 2.9 Magnesium 2.0 Total Bilirubin 0.6 AST 22 ALT 25 Alkaline Phosphatase 72 Total Protein 6.6 Albumin 4.0 Globulin 2.6 Albumin/Globulin Ratio 1.5 Free T4 Attending/Attestation - Attestation I have personally seen and examined this patient.: Yes I have fully participated in the care of the patient.: Yes I have reviewed all pertinent clinical information: Yes
--- NOTE | 2017-11-17 20:26 | CP.PCM.CON ---
History of Present Illness - History of Present Illness History of Present Illness: 57 year old male with PMH of chronic bronchitis, chronic pain syndrome, substance abuse, lumbar disc herniation, morbid obesity with BMI 43, S/P cholecystectomy, S/P tonsillectomy came in to [facility] complaining of bilateral leg swelling for more than a week now, associated with pain and increased redness. He denies soaking his feet in water, no animal contacts, no walking barefoot on soil. He has not been on antibiotics in the past 3 months. He denies insect bites as well. He denies fever or chills, no nausea or vomiting, no chest pain, no SOB, no headache or dizziness, no abdominal pain, no diarrhea, no dysuria. Infectious Diseases consult is requested to further evaluate and manage. Review of Systems - Review of Systems All systems: reviewed and no additional remarkable complaints except (as per HPI ) Past Patient History - Infectious Disease Hx of Infectious Diseases: None - Past Social History Smoking Status: Current Some Days Smoker - CARDIAC Hx Cardiac Disorders: No Hx Pacemaker: No - PULMONARY Hx Respiratory Disorders: Yes (USED TO SMOKE CIGARETTES ,QUIT.) Hx Chronic Obstructive Pulmonary Disease (COPD): Yes - NEUROLOGICAL Hx Paralysis: No - HEENT Hx HEENT Problems: No - RENAL Hx Chronic Kidney Disease: No - ENDOCRINE/METABOLIC Hx Endocrine Disorders: No - HEMATOLOGICAL/ONCOLOGICAL Hx Blood Transfusions: No Hx Blood Transfusion Reaction: No - INTEGUMENTARY Hx Dermatological Problems: Yes Other/Comment: 11-16-17 BILATERAL LE PITTING EDEMA +3 UP TO HIS KNEES. WEEPING WOUND TO RIGHT CAVAZOS BONE.SOME BLOOD. ERYTHEMA. - MUSCULOSKELETAL/RHEUMATOLOGICAL Hx Musculoskeletal Disorders: Yes Hx Back Pain: Yes - GASTROINTESTINAL Hx Gastrointestinal Disorders: Yes (CONSTIPATION) Hx Gall Bladder Disease: Yes (CHOLEYCSTECTOMY) - GENITOURINARY/GYNECOLOGICAL Hx Genitourinary Disorders: No - PSYCHIATRIC Hx Emotional Abuse: No Hx Physical Abuse: No Hx Substance Use: No - SURGICAL HISTORY Hx Cholecystectomy: Yes Hx Orthopedic Surgery: Yes (SPINAL SX) - ANESTHESIA Hx Anesthesia Reactions: Yes ("I HAVE A VERY HIGH PAIN TOLERANCE") Meds Allergies/Adverse Reactions: Allergies Allergy/AdvReac Type Severity Reaction Status Date / Time gabapentin Allergy RASH Verified 11/16/17 21:44 pregabalin [From Lyrica] Allergy RASH Verified 11/16/17 21:44 shellfish derived Allergy RASH Verified 11/16/17 21:44 MARKY Allergy ANGIOEDEMA Uncoded 11/16/17 21:44 - Medications Medications: Current Medications Docusate Sodium (Colace) 100 mg PO DAILY JUAN Furosemide (Lasix) 20 mg IVP Q12 JUAN Last Admin: 11/16/17 21:56 Dose: 20 mg Heparin Sodium (Porcine) (Heparin) 5,000 units SC Q12 JUAN PRN Reason: Protocol Last Admin: 11/16/17 21:55 Dose: 5,000 units Vancomycin HCl (Vancomycin 1gm) 1 gm in 250 mls @ 167 mls/hr IVPB Q12H JUAN PRN Reason: Protocol Levalbuterol HCl (Xopenex) 1.25 mg IH [id number] PRN PRN Reason: Shortness of Breath Lidocaine (Lidoderm) 1 ea TD DAILY [facility] Morphine Sulfate (Morphine) 2 mg IVP Q4H PRN PRN Reason: Pain, severe (8-10) Pantoprazole Sodium (Protonix Ec Tab) 40 mg PO 0600 [facility] Last Admin: 11/17/17 05:42 Dose: 40 mg Physical Exam - Constitutional Appears: Non-toxic, No Acute Distress, Chronically Ill - Head Exam Head Exam: NORMAL INSPECTION - Neck Exam Neck exam: Negative for: Meningismus - Respiratory Exam Respiratory Exam: Decreased Breath Sounds. absent: Rales - Cardiovascular Exam Cardiovascular Exam: +S1, +S2 - GI/Abdominal Exam GI & Abdominal Exam: Soft. absent: Tenderness - Extremities Exam Additional comments: bilateral lower extremity swelling and erythema with some tenderness Results - Vital Signs Recent Vital Signs: Last Vital Signs Temp 97.9 F 11/17/17 06:00 Pulse 84 11/17/17 06:00 Resp 18 11/17/17 06:00 BP 104/65 11/17/17 06:00 Pulse Ox 95 11/17/17 06:00 - Labs Result Diagrams: 11/17/17 05:30 11/17/17 05:30 Labs: Laboratory Results - last 24 hr 11/16/17 11/17/17 11/17/17 23:15 05:30 05:30 WBC 9.1 RBC 4.28 Hgb 13.2 L Hct 39.7 L MCV 92.8 MCH 30.8 MCHC 33.2 RDW 13.5 Plt Count 216 MPV 9.4 Gran % 40.3 L Lymph % (Auto) 47.8 H [place] % (Auto) 9.6 H Eos % (Auto) 1.9 Baso % (Auto) 0.4 Gran # 3.67 Lymph # (Auto) 4.4 H [place] # (Auto) 0.9 H Eos # (Auto) 0.2 Baso # (Auto) 0.04 Sodium 140 Potassium 3.7 Chloride 98 Carbon Dioxide 35 H Anion Gap 11 BUN 20 Creatinine 0.9 Est GFR ( Amer) > 60 Est GFR (Non-Af Amer) > 60 Random Glucose 87 Calcium 8.6 Phosphorus 3.8 Magnesium 1.9 Total Bilirubin 0.4 AST 23 ALT 23 Alkaline Phosphatase 66 NT-Pro-B Natriuret Pep 56.7 Total Protein 6.1 Albumin 3.6 Globulin 2.5 Albumin/Globulin Ratio 1.4 Triglycerides 85 Cholesterol 157 LDL Cholesterol Direct 87 HDL Cholesterol 44 Assessment & Plan - Assessment and Plan (Free Text) Plan: Assessment bilateral lower extremity venous stasis with lymphedema with superimposed cellulitis chronic bronchitis chronic pain syndrome substance abuse lumbar disc herniation morbid obesity with BMI 43 S/P cholecystectomy S/P tonsillectomy Plan Started IV Vancomycin pending blood cx; ultrasound of legs does not show DVT follow up 2D Echo will monitor clinically
[2017-11-17] MEDS: Morphine 2 mg/ml ISec IVP PRN (21:04)
[2017-11-18] MEDS: Levothyroxine 25 MCG TAB PO SCH (05:36)
[2017-11-18] MEDS: Pantoprazole 40 mg EC Tab PO SCH (05:40)
[2017-11-18 07:39] LABS: BASO # 0.02 K/mm3 (0.0-2.0); BASO % 0.3 % (0.0-3.0); EOS # 0.1 (0.0-0.7); EOS % 1.9 % (1.5-5.0); GRAN # 4.01 (1.4-6.5); GRAN % 53.8 % (50.0-68.0); HEMOGLOBIN 13.4 g/dL (14.0-18.0); LYMPH # 2.6 (1.2-3.4); LYMPH % 35.3 % (22.0-35.0); MEAN CELL VOLUME 91.3 fl (80.0-105.0); MEAN CORPUSCULAR HEMOGLOBIN 30.7 pg (25.0-35.0); MEAN CORPUSCULAR HGB CONC 33.7 g/dl (31.0-37.0); MEAN PLATELET VOLUME 9.8 fl (7.0-11.0); MONO # 0.7 (0.1-0.6); MONO % 8.7 % (1.0-6.0); RBC 4.36 10^6/uL (3.5-6.1); RED CELL DISTRIBUTION WIDTH 13.1 % (11.5-14.5); WHITE BLOOD COUNT 7.5 10^3/ul (4.5-11.0)
[2017-11-18 07:54] LABS: ALB/GLOB RATIO 1.5 (1.1-1.8); ALT/SGPT 25 U/L (7-56); AST/SGOT 22 U/L (17-59); BLOOD UREA NITROGEN 16 mg/dL (7-21); CALCIUM 8.7 mg/dL (8.4-10.5); GFR NON-AFRICAN AMERICAN > 60
[2017-11-18] MEDS: Morphine 2 mg/ml ISec IVP PRN ×2 (09:48→23:36)
[2017-11-18] MEDS: Lidocaine 5% Patch TD SCH (09:49)
[2017-11-18] MEDS: Vancomycin 1gm in NS 250ml 1 GM/250 ML BAG IVPB SCH ×2 (09:50→21:47)
--- NOTE | 2017-11-18 10:17 | CP.PCM.PN ---
Addendum entered and electronically signed by Malachi Bell DPM 11/18/17 12: 30: Podiatry progress notes for attending Dr. ePna Original Note: <Malachi Bell - Last Filed: 11/18/17 10:11> Subjective - Date & Time of Evaluation Date of Evaluation: 11/18/17 Time of Evaluation: 10:11 - Subjective Subjective: Podiatry Consult note: Dr. Pena 57 year old male with was seen and evaluated for bilateral LE edema. Patient also complains that he was on oxcodone high dose when treatment recently abruptly stopped. Patient states that his legs were hurting him from the compression dressing so he took them off. patient states that earlier today he went for b/l leg ultrasound. Patient denies any overnight F/N/V/C. Denies of any other pedal complains at this time. Objective - Vital Signs/Intake and Output Vital Signs (last 24 hours): Temp Pulse Resp BP Pulse Ox 98.7 F 83 19 125/106 H 94 L 11/18/17 06:00 11/18/17 06:00 11/18/17 06:00 11/18/17 09:51 11/18/17 06:00 Intake and Output: 11/18/17 11/18/17 06:59 18:59 Intake Total 240 Output Total 1350 Balance -1110 - Medications Medications: Current Medications Docusate Sodium (Colace) 100 mg PO DAILY [facility] Last Admin: 11/18/17 09:50 Dose: Not Given Furosemide (Lasix) 20 mg IVP Q12 [facility] Last Admin: 11/18/17 09:51 Dose: 20 mg Heparin Sodium (Porcine) (Heparin) 5,000 units SC Q12 [facility] PRN Reason: Protocol Last Admin: 11/18/17 09:51 Dose: 5,000 units Vancomycin HCl (Vancomycin 1gm) 1 gm in 250 mls @ 167 mls/hr IVPB Q12H [facility] PRN Reason: Protocol Last Admin: 11/18/17 09:50 Dose: 167 mls/hr Levalbuterol HCl (Xopenex) 1.25 mg IH [id number] PRN PRN Reason: Shortness of Breath Levothyroxine Sodium (Synthroid) 25 mcg PO 0600 [facility] Last Admin: 11/18/17 05:36 Dose: 25 mcg Lidocaine (Lidoderm) 1 ea TD DAILY [facility] Last Admin: 11/18/17 09:49 Dose: 1 ea Morphine Sulfate (Morphine) 2 mg IVP Q4H PRN PRN Reason: Pain, moderate (4-7) Last Admin: 11/18/17 09:48 Dose: 2 mg Pantoprazole Sodium (Protonix Ec Tab) 40 mg PO 0600 [facility] Last Admin: 11/18/17 05:40 Dose: 40 mg - Labs Labs: 11/18/17 06:30 11/18/17 06:30 - Constitutional Appears: Well, Non-toxic, No Acute Distress - Head Exam Head Exam: ATRAUMATIC, NORMOCEPHALIC - Extremities Exam Additional comments: Bilateral LE exam VASC: DP/PT pulses are faintly palpable, Cap refill time < 3 sec to all digits, Temp gradient cool to cool from proximal to distal, +3 pitting edema noted diffusely on bilateral LE and dorsum of the foot. DERM: no open lesions, no erythema, no clinical suspicion of active infection NEURO: Protective and gross sensations are grossly intact ORTHO: No pain on palpation of the calf, MMT: 5/5 in all 4 direction at the ankle joint - Neurological Exam Neurological Exam: Alert, Awake, Oriented x3 - Psychiatric Exam Psychiatric exam: Normal Affect, Normal Mood Assessment and Plan - Assessment and Plan (Free Text) Assessment: 57 year old male was evaluated for b/l LE edema secondary to venous insufficiency and possible CHF Plan: Patient seen and evaluated at the bedside with attending Dr. Pena Discussed plan with attending Dr. Pena Labs, vitals and charts reviewed - afebrile, no leukocytosis Strict I/O Continue Lasix CLAIR bandages reapplied to b/l LE Patient instructed not to take off the clair bandage when he is standing or walking. Ordered B/L compression stockings. Orderd Ammonium lactate cream. LASHON/PVR result L foot 1.07, R foot 1.01 Educated patient to elevate b/l LE whenever possible Patient is stable from podiatry standpoint Thank you for the podiatry consult and allowing to take part in patient care <Kristopher Pena - Last Filed: 11/19/17 10:34> Objective - Vital Signs/Intake and Output Vital Signs (last 24 hours): Temp Pulse Resp BP Pulse Ox 98.4 F 76 20 127/73 95 11/19/17 06:00 11/19/17 06:00 11/19/17 06:00 11/19/17 09:12 11/19/17 06:00 Intake and Output: 11/19/17 11/19/17 06:59 18:59 Intake Total 600 Output Total 1700 Balance -1100 - Medications Medications: Current Medications Docusate Sodium (Colace) 100 mg PO DAILY [facility] Last Admin: 11/19/17 09:04 Dose: 100 mg Furosemide (Lasix) 20 mg IVP Q12 [facility] Last Admin: 11/19/17 09:12 Dose: 20 mg Heparin Sodium (Porcine) (Heparin) 5,000 units SC Q12 JUAN PRN Reason: Protocol Last Admin: 11/19/17 09:04 Dose: 5,000 units Vancomycin HCl (Vancomycin 1gm) 1 gm in 250 mls @ 167 mls/hr IVPB Q12H [facility]UAN PRN Reason: Protocol Last Admin: 11/18/17 21:47 Dose: 167 mls/hr Lactic Acid (Lac-Hydrin 12% Lotion (225 G)) 1 gm EXT QD7 [facility] Last Admin: 11/19/17 08:45 Dose: 1 applic Levalbuterol HCl (Xopenex) 1.25 mg IH [id number] PRN PRN Reason: Shortness of Breath Levothyroxine Sodium (Synthroid) 25 mcg PO 0600 [facility] Last Admin: 11/19/17 05:03 Dose: 25 mcg Lidocaine (Lidoderm) 1 ea TD DAILY [facility] Last Admin: 11/19/17 09:13 Dose: 1 ea Morphine Sulfate (Morphine) 2 mg IVP Q4H PRN PRN Reason: Pain, moderate (4-7) Last Admin: 11/19/17 09:04 Dose: 2 mg Pantoprazole Sodium (Protonix Ec Tab) 40 mg PO 0600 [facility] Last Admin: 11/19/17 05:04 Dose: 40 mg - Labs Labs: 11/19/17 06:30 11/19/17 06:30 Attending/Attestation - Attestation I have personally seen and examined this patient.: Yes I have fully participated in the care of the patient.: Yes I have reviewed all pertinent clinical information, including history, physical exam and plan: Yes
--- NOTE | 2017-11-18 11:36 | PN ---
Copied To: Adrien Romero MD Attending MD: Adrien Romero MD DATE: 11/18/2017 SUBJECTIVE: The patient is seen in room 265, bed 2. No fevers, no chills. An uneventful night. PHYSICAL EXAMINATION: VITAL SIGNS: Today, on exam, temperature is 97, blood pressure is 150/100, respiratory rate of 18. HEENT: Examination of HEENT is unremarkable. NECK: Supple. LUNGS: Have decreased breath sounds. HEART: Normal S1, S2. ABDOMEN: Soft, nontender. LABORATORY DATA: Laboratory examination reveals a white count of 7.5, hemoglobin of 13, platelets of 222. Coagulation is noted. Chemistries reveals a BUN of 16, creatinine of 0.8. Microbiology is noted. Review of orders reveals the patient to be on IV vancomycin. ASSESSMENT AND PLAN: A 57-year-old male with morbid obesity with body mass index of 42, chronic bronchitis, chronic pain syndrome, substance abuse, lumbar disk herniation, who is admitted with bilateral lower extremity venous stasis with lymphedema, superimposed cellulitis right greater than the left leg with chronic bronchitis and morbid obesity. Currently, on vancomycin day #2. The leg appears to be improving. We will check on the ultrasound which was done, no results available at this time. Venous ultrasound shows no evidence of deep venous thrombosis. We will follow with you. Adrien Romero MD
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
[2017-11-19] MEDS: Levothyroxine 25 MCG TAB PO SCH (05:03)
[2017-11-19] MEDS: Pantoprazole 40 mg EC Tab PO SCH (05:04)
[2017-11-19 07:38] LABS: BASO # 0.02 K/mm3 (0.0-2.0); BASO % 0.3 % (0.0-3.0); EOS # 0.2 (0.0-0.7); EOS % 3.1 % (1.5-5.0); GRAN # 3.21 (1.4-6.5); GRAN % 45.4 % (50.0-68.0); HEMOGLOBIN 13.7 g/dL (14.0-18.0); LYMPH % 43.1 % (22.0-35.0); MEAN CELL VOLUME 91.7 fl (80.0-105.0); MEAN CORPUSCULAR HEMOGLOBIN 30.8 pg (25.0-35.0); MEAN CORPUSCULAR HGB CONC 33.6 g/dl (31.0-37.0); MEAN PLATELET VOLUME 9.9 fl (7.0-11.0); MONO # 0.6 (0.1-0.6); MONO % 8.1 % (1.0-6.0); RBC 4.45 10^6/uL (3.5-6.1); RED CELL DISTRIBUTION WIDTH 13.3 % (11.5-14.5); WHITE BLOOD COUNT 7.1 10^3/ul (4.5-11.0)
[2017-11-19 07:50] LABS: ALB/GLOB RATIO 1.4 (1.1-1.8); ALBUMIN 3.9 g/dL (3.0-4.8); ALT/SGPT 30 U/L (7-56); AST/SGOT 23 U/L (17-59); BLOOD UREA NITROGEN 12 mg/dL (7-21); CALCIUM 8.8 mg/dL (8.4-10.5); GFR NON-AFRICAN AMERICAN > 60
[2017-11-19] MEDS: Ammonium Lactate 12% Lotion (225 g) EXT SCH (08:45)
[2017-11-19] MEDS: Morphine 2 mg/ml ISec IVP PRN ×3 (09:04→21:44)
[2017-11-19] MEDS: Lidocaine 5% Patch TD SCH (09:13)
[2017-11-19] MEDS: Vancomycin 1gm in NS 250ml 1 GM/250 ML BAG IVPB SCH ×2 (10:38→21:42)
--- NOTE | 2017-11-19 12:07 | PN ---
Copied To: Adrien Romero MD Attending MD: Adrien Romero MD DATE: 11/19/2017 SUBJECTIVE: The patient is in bed, in no acute distress, nontoxic. PHYSICAL EXAMINATION: VITAL SIGNS: On exam, temperature is 98, blood pressure is 120/80, respiratory rate of 18. HEENT: Examination of HEENT is unremarkable. NECK: Supple. LUNGS: Have decreased breath sounds. HEART: Normal S1, S2. ABDOMEN: Soft, nontender. LABORATORY DATA: Laboratory examination reveals the chemistries are noted. CBC shows a white count of 7.1. Microbiology is noted. Dr. Montgomery's note is reviewed. Review of orders reveals the patient to be on IV vancomycin. ASSESSMENT AND PLAN: A 57-year-old male with morbid obesity, body mass index of 42, chronic bronchitis, chronic pain syndrome, substance abuse, lumbar disk herniation. Admitted with bilateral lower extremity venous stasis and lymphedema with superimposed cellulitis, right greater than the left with chronic bronchitis and morbid obesity, on vancomycin day #3 and possible discharge on p.o. doxycycline as discussed with the team yesterday. Adrien Romero MD
--- NOTE | 2017-11-19 13:11 | CP.PCM.PN ---
<Malachi Bell - Last Filed: 11/19/17 13:07> Subjective - Date & Time of Evaluation Date of Evaluation: 11/19/17 Time of Evaluation: 13:07 - Subjective Subjective: Podiatry progress notes for attending Dr. Pena 57 year old male with was seen and evaluated for bilateral LE edema. Patient states that the compression dressing was painful by night so he took then off. Patient states that his legs were hurting him from the compression dressing so he took them off. Patient was not having his compression dressing on his LE when he was seen. Patient denies any overnight F/N/V/C. Denies of any other pedal complains at this time. Objective - Vital Signs/Intake and Output Vital Signs (last 24 hours): Temp Pulse Resp BP Pulse Ox 98.4 F 76 20 127/73 95 11/19/17 06:00 11/19/17 06:00 11/19/17 06:00 11/19/17 09:12 11/19/17 06:00 Intake and Output: 11/19/17 11/19/17 06:59 18:59 Intake Total 600 Output Total 1700 1000 Balance -1100 -1000 - Medications Medications: Current Medications Docusate Sodium (Colace) 100 mg PO DAILY [facility] Last Admin: 11/19/17 09:04 Dose: 100 mg Furosemide (Lasix) 20 mg IVP Q12 [facility] Last Admin: 11/19/17 09:12 Dose: 20 mg Heparin Sodium (Porcine) (Heparin) 5,000 units SC Q12 [facility] PRN Reason: Protocol Last Admin: 11/19/17 09:04 Dose: 5,000 units Vancomycin HCl (Vancomycin 1gm) 1 gm in 250 mls @ 167 mls/hr IVPB Q12H [facility] PRN Reason: Protocol Last Admin: 11/19/17 10:38 Dose: 167 mls/hr Lactic Acid (Lac-Hydrin 12% Lotion (225 G)) 1 gm EXT QD7 [facility] Last Admin: 11/19/17 08:45 Dose: 1 applic Levalbuterol HCl (Xopenex) 1.25 mg IH [id number] PRN PRN Reason: Shortness of Breath Levothyroxine Sodium (Synthroid) 25 mcg PO 0600 [facility] Last Admin: 11/19/17 05:03 Dose: 25 mcg Lidocaine (Lidoderm) 1 ea TD DAILY [facility] Last Admin: 11/19/17 09:13 Dose: 1 ea Morphine Sulfate (Morphine) 2 mg IVP Q4H PRN PRN Reason: Pain, moderate (4-7) Last Admin: 11/19/17 09:04 Dose: 2 mg Pantoprazole Sodium (Protonix Ec Tab) 40 mg PO 0600 [facility] Last Admin: 11/19/17 05:04 Dose: 40 mg - Labs Labs: 11/19/17 06:30 11/19/17 06:30 - Constitutional Appears: Well, Non-toxic, No Acute Distress - Head Exam Head Exam: ATRAUMATIC, NORMOCEPHALIC - Extremities Exam Additional comments: Bilateral LE exam Vasc: DP/PT pulses are faintly palpable, Cap refill time < 3 sec to all digits, Temp gradient warm to cool from proximal to distal, +3 pitting edema noted diffusely on bilateral LE and dorsum of the foot. Neuro: Protective and gross sensations are grossly intact Derm: no open lesions, no erythema, no clinical signs of active infection MSK: No pain on palpation of the calf, Muscle power inatct 5/5 in all all groups. - Neurological Exam Neurological Exam: Alert, Awake, Oriented x3 - Psychiatric Exam Psychiatric exam: Normal Affect, Normal Mood Assessment and Plan - Assessment and Plan (Free Text) Assessment: 57 year old male was evaluated for b/l LE edema secondary to venous insufficiency and possible CHF Plan: Patient seen and evaluated at the bedside Discussed plan with attending Dr. Pena Labs, vitals and charts reviewed - afebrile, no leukocytosis Strict I/O Continue Lasix CLAIR bandages reapplied to b/l LE Patient instructed not to take off the clair bandage when he is standing or walking. Ordered B/L compression stockings. LASHON/PVR result L foot 1.07, R foot 1.01 Educated patient to elevate b/l LE whenever possible Patient is stable from podiatry standpoint Thank you for the podiatry consult and allowing to take part in patient care <Kristopher Pnea - Last Filed: 11/21/17 15:47> Objective - Vital Signs/Intake and Output Vital Signs (last 24 hours): Temp Pulse Resp BP Pulse Ox 98.1 F 75 20 115/55 L 95 11/20/17 21:58 11/20/17 21:58 11/20/17 21:58 11/20/17 21:58 11/20/17 21:58 Intake and Output: 11/21/17 11/21/17 06:59 18:59 Intake Total 980 Output Total 775 Balance 205 - Labs Labs: 11/20/17 06:30 11/20/17 06:30 Attending/Attestation - Attestation I have personally seen and examined this patient.: Yes I have fully participated in the care of the patient.: Yes I have reviewed all pertinent clinical information, including history, physical exam and plan: Yes
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
[2017-11-20] MEDS: Levothyroxine 25 MCG TAB PO SCH (05:23)
[2017-11-20] MEDS: Pantoprazole 40 mg EC Tab PO SCH (05:24)
[2017-11-20] MEDS: Morphine 2 mg/ml ISec IVP PRN ×3 (05:24→17:18)
[2017-11-20 07:05] LABS: HEMOGLOBIN 14.3 g/dL (14.0-18.0); MEAN CORPUSCULAR HEMOGLOBIN 31.1 pg (25.0-35.0); MEAN CORPUSCULAR HGB CONC 33.8 g/dl (31.0-37.0); RBC 4.6 10^6/uL (3.5-6.1); RED CELL DISTRIBUTION WIDTH 13.3 % (11.5-14.5); WHITE BLOOD COUNT 8.1 10^3/ul (4.5-11.0)
[2017-11-20 07:21] LABS: ALB/GLOB RATIO 1.5 (1.1-1.8); ALBUMIN 4.5 g/dL (3.0-4.8); ALT/SGPT 35 U/L (7-56); AST/SGOT 35 U/L (17-59); BLOOD UREA NITROGEN 15 mg/dL (7-21); CALCIUM 9.3 mg/dL (8.4-10.5); GFR NON-AFRICAN AMERICAN > 60
[2017-11-20 08:15] VITALS: RESP 20
[2017-11-20] MEDS: Ammonium Lactate 12% Lotion (225 g) EXT SCH (09:36)
[2017-11-20] MEDS: Vancomycin 1gm in NS 250ml 1 GM/250 ML BAG IVPB SCH (09:41)
--- NOTE | 2017-11-20 16:52 | CP.PCM.DIS ---
Provider - Provider Date of Admission: 11/16/17 18:19 Attending physician: Ksenia Montgomery DO Primary care physician: Charo Donovan MD Consults: Podiatry - Natasha Hwang Time Spent in preparation of Discharge (in minutes): 100 Hospital Course - Lab Results Lab Results: Most Recent Lab Values WBC 8.1 10^3/ul (4.5-11.0) 11/20/17 06:30 RBC 4.60 10^6/uL (3.5-6.1) 11/20/17 06:30 Hgb 14.3 g/dL (14.0-18.0) 11/20/17 06:30 Hct 42.3 % (42.0-52.0) 11/20/17 06:30 MCV 92.0 fl (80.0-105.0) 11/20/17 06:30 MCH 31.1 pg (25.0-35.0) 11/20/17 06:30 MCHC 33.8 g/dl (31.0-37.0) 11/20/17 06:30 RDW 13.3 % (11.5-14.5) 11/20/17 06:30 Plt Count 239 10^3/uL (120.0-450.0) 11/20/17 06:30 MPV 10.0 fl (7.0-11.0) 11/20/17 06:30 Gran % 45.4 % (50.0-68.0) L 11/19/17 06:30 Lymph % (Auto) 43.1 % (22.0-35.0) H 11/19/17 06:30 Juab % (Auto) 8.1 % (1.0-6.0) H 11/19/17 06:30 Eos % (Auto) 3.1 % (1.5-5.0) 11/19/17 06:30 Baso % (Auto) 0.3 % (0.0-3.0) 11/19/17 06:30 Gran # 3.21 (1.4-6.5) 11/19/17 06:30 Lymph # (Auto) 3.0 (1.2-3.4) 11/19/17 06:30 Juab # (Auto) 0.6 (0.1-0.6) 11/19/17 06:30 Eos # (Auto) 0.2 (0.0-0.7) 11/19/17 06:30 Baso # (Auto) 0.02 K/mm3 (0.0-2.0) 11/19/17 06:30 D-Dimer, Quantitative 279 ng/mlDDU (0-243) H 11/16/17 16:19 Sodium 141 mmol/L (132-148) 11/20/17 06:30 Potassium 3.8 mmol/L (3.6-5.0) 11/20/17 06:30 Chloride 97 mmol/L (98-107) L 11/20/17 06:30 Carbon Dioxide 34 mmol/L (21-33) H 11/20/17 06:30 Anion Gap 14 (10-20) 11/20/17 06:30 BUN 15 mg/dL (7-21) 11/20/17 06:30 Creatinine 0.9 mg/dl (0.8-1.5) 11/20/17 06:30 Est GFR ( Amer) > 60 11/20/17 06:30 Est GFR (Non-Af Amer) > 60 11/20/17 06:30 Random Glucose 105 mg/dL (70-110) 11/20/17 06:30 Hemoglobin A1c 5.3 % (4.2-6.5) 11/17/17 05:30 Calcium 9.3 mg/dL (8.4-10.5) 11/20/17 06:30 Phosphorus 3.1 mg/dL (2.5-4.5) 11/19/17 06:30 Magnesium 2.1 mg/dL (1.7-2.2) 11/19/17 06:30 Total Bilirubin 0.6 mg/dL (0.2-1.3) 11/20/17 06:30 AST 35 U/L (17-59) 11/20/17 06:30 ALT 35 U/L (7-56) 11/20/17 06:30 Alkaline Phosphatase 80 U/L (38-126) 11/20/17 06:30 Troponin I < 0.01 ng/mL 11/16/17 16:19 NT-Pro-B Natriuret Pep 56.7 pg/mL (0-450) 11/16/17 23:15 Total Protein 7.5 g/dL (5.8-8.3) 11/20/17 06:30 Albumin 4.5 g/dL (3.0-4.8) 11/20/17 06:30 Globulin 3.0 gm/dL 11/20/17 06:30 Albumin/Globulin Ratio 1.5 (1.1-1.8) 11/20/17 06:30 Triglycerides 85 mg/dL (35-160) 11/17/17 05:30 Cholesterol 157 mg/dL (130-200) 11/17/17 05:30 LDL Cholesterol Direct 87 mg/dL (0-129) 11/17/17 05:30 HDL Cholesterol 44 mg/dL (29-60) 11/17/17 05:30 Free T4 0.86 ng/dL (0.78-2.19) 11/17/17 05:30 TSH 3rd Generation 6.21 mIU/mL (0.46-4.68) H 11/16/17 16:19 - Hospital Course Hospital Course: Upon Admission 57M w/ PMH of 3 herniated discs and chronic bronchitis, presented to the ED on 11/16/17 complaining of B/L leg swelling for the past 10 days with mild purulent drainage on the right lower extremity Patient reported associated shortness of breath and chest pain stating he has difficulty laying flat for an extended period of time. EKG, and troponins were negative. D-dimer was elevated. Patient was ordered a LE doppler and CT angio in the ED both of which were unremarkable. Patient was admitted to [facility]. Hospital Course: Patient was admitted to the hospitalist and evaluated. Wound care was consulted to take care of the right lower extremity drainage and patient was started on IV Lasix 20mg Q12. Echo and BNP were ordered revealing a transmitral grade-1 abnormal relaxation pattern. Patient was ordered xopenex PRN for treatment of his chronic bronchitis. Patient was started on low-dose synthroid due to subclinical hypothroidism with elevated TSH. Patient continued to complain of unbearable back pain in which he noted was previously treated with opioids. Patient was started on lidocaine patch and morphine 2mg Q4 PRN upon confirming his medications through his pharmacy and pain management care team. PT was consulted and recommended continued elevation of the lower extremity. Patient was also placed on subQ heparin for DVT prophylaxis. Podiatry was consulted providing compression bandages for the lower extremity swelling. B/L compression stalking were ordered. Infectious disease was consulted and patient was started on vanco due to possible cellulitis. Repeat lower extremity US was negative for DVT. Lower extremity arterial doppler was also negative. Upon discharge: Podiatry signed off and recommended continued use of compression stalking and elevation of the LE Infectious disease signed off with recommended discharge on PO doxycycline PT signed off with recommended home PT Patient to follow-up with the [facility] for additional blood work. - Date & Time of H&P Date of H&P: 11/16/17 Time of H&P: 22:00 Discharge Exam - Head Exam Head Exam: ATRAUMATIC, NORMAL INSPECTION, NORMOCEPHALIC - Eye Exam Eye Exam: EOMI, PERRL - ENT Exam ENT Exam: Mucous Membranes Moist - Respiratory Exam Respiratory Exam: NORMAL BREATHING PATTERN, UNREMARKABLE. absent: Wheezes, Respiratory Distress - Cardiovascular Exam Cardiovascular Exam: REGULAR RHYTHM, +S1, +S2. absent: Systolic Murmur - GI/Abdominal Exam GI & Abdominal Exam: Normal Bowel Sounds, Soft. absent: Tenderness - Extremities Exam Extremities exam: calf tenderness, pedal edema, tenderness - Neurological Exam Neurological exam: Alert, Oriented x3 - Psychiatric Exam Psychiatric exam: Normal Affect, Normal Mood - Skin Skin Exam: Dry, Intact, Warm Discharge Plan - Discharge Medications Prescriptions: Doxycycline Hyclate 100 mg PO BID 5 Days #10 capsule Furosemide [Lasix] 20 mg PO DAILY 5 Days #5 tab Lactobacillus Acidophilus [Bacid Acidophilus] 1 cap PO BID 7 Days #14 cap - Follow Up Plan Condition: STABLE Disposition: HOME/ ROUTINE Instructions: Varicose Veins (DC), Dependent Edema (DC) Additional Instructions: Please follow up with the [facility] on December 07, 2017 at 1pm , you will need repeat blood work and thyroid studies done. Upon discharge, please continue your home medications. Please start the Lasix 20mg daily for five days, [facility] for [facility] for continued need of this medication. Please start the Antibiotics and take as prescribed. Please follow up with Podiatry, Dr. Kaur, within 3-5 days. Continue to use the cream and CLAIR bandages as instructed. Please return to the emergency room if symptoms return Referrals: Adrien Romero MD [Staff Provider] - Charo Donovan MD [Primary Care Provider] -
[2017-11-20] MEDS: Lidocaine 5% Patch TD SCH (17:18)
--- NOTE | 2017-11-20 17:53 | CP.PCM.PN ---
Subjective - Date & Time of Evaluation Date of Evaluation: 11/20/17 Time of Evaluation: 12:00 - Subjective Subjective: Podiatry Progress Note - Drs. Kaur/Jean 57 year old male patient seen and examined for bilateral LE edema. Patient hemodynamically stable and NAD. No acute events overnight. LCAIR wraps present to bilateral LE. Patient states edema in legs has improved since initial presentation. Pain to bilateral LE decreased. Denies N/V/D, no F/C. No new pedal complaints. Objective - Vital Signs/Intake and Output Vital Signs (last 24 hours): Temp Pulse Resp BP Pulse Ox 98 F 80 20 112/60 96 11/20/17 14:00 11/20/17 14:00 11/20/17 14:00 11/20/17 14:00 11/20/17 14:00 Intake and Output: 11/20/17 11/20/17 06:59 18:59 Intake Total 360 Output Total 800 Balance -440 - Medications Medications: Current Medications Docusate Sodium (Colace) 100 mg PO DAILY [facility] Last Admin: 11/20/17 09:43 Dose: Not Given Furosemide (Lasix) 20 mg IVP Q12 JUAN Last Admin: 11/20/17 09:37 Dose: 20 mg Heparin Sodium (Porcine) (Heparin) 5,000 units SC Q12 JUAN PRN Reason: Protocol Last Admin: 11/20/17 09:36 Dose: 5,000 units Vancomycin HCl (Vancomycin 1gm) 1 gm in 250 mls @ 167 mls/hr IVPB Q12H JUAN PRN Reason: Protocol Last Admin: 11/20/17 09:41 Dose: 167 mls/hr Lactic Acid (Lac-Hydrin 12% Lotion (225 G)) 1 gm EXT QD7 [facility] Last Admin: 11/20/17 09:36 Dose: 1 applic Levalbuterol HCl (Xopenex) 1.25 mg IH [id number] PRN PRN Reason: Shortness of Breath Lidocaine (Lidoderm) 1 ea TD DAILY [facility] Last Admin: 11/20/17 17:18 Dose: Not Given Morphine Sulfate (Morphine) 2 mg IVP Q4H PRN PRN Reason: Pain, moderate (4-7) Last Admin: 11/20/17 17:18 Dose: 2 mg Pantoprazole Sodium (Protonix Ec Tab) 40 mg PO 0600 [facility] Last Admin: 11/20/17 05:24 Dose: 40 mg - Labs Labs: 11/20/17 06:30 11/20/17 06:30 - Constitutional Appears: Well, Non-toxic, No Acute Distress - Extremities Exam Additional comments: Bilateral LE exam Vasc: DP and PT pulses weakly palpable 1/4 b/l. CFT <3 seconds to all digits. Temperature gradient warm to warm b/l. +2 pitting edema noted to arturoateraudrey HURLEY. Neuro: Gross sensation intact bilaterally. Derm: No open lesions noted. No erythema noted. Skin appears friable to anterior leg. Ortho: No pain upon calf squeeze b/l. Muscle strength 5/5 for all dorsiflexors, plantarflexors, inverters, and everters b/l. - Neurological Exam Neurological Exam: Alert, Awake, Oriented x3 - Psychiatric Exam Psychiatric exam: Normal Affect, Normal Mood Assessment and Plan - Assessment and Plan (Free Text) Assessment: 57M with bilateral LE edema 2/2 venous insufficiency and PVD, improving Plan: Patient seen and evaluated Discussed with attending, Dr. Kaur VSS, WBC WNL Continue Lasix CLAIR bandages reapplied to b/l LE Awaiting compression stockings, ordered LASHON/PVR result L foot 1.07, R foot 1.01 Patient is stable from podiatry standpoint Patient to follow up with Dr. Kaur in office as outpatient once discharged Podiatry will continue to follow
--- NOTE | 2017-11-20 18:13 | US ---
PROCEDURE: Lower extremity LASHON exam HISTORY: Peripheral vascular disease with pain and claudication. Previous right lower extremity stent PHYSICIAN(S): Blade Parekh MD. FINDINGS: The resting LASHON's are normal: right, and left, . The brachial systolic pressures are symmetric. The low thigh pressures are noncompressible. Low thigh PVR waveforms are relatively normal and symmetric The calf PVR waveforms augment normally. No significant gradients are noted across the thighs. The ankle and metatarsal waveforms are relatively normal and symmetric. No significant pressure gradients are noted across the lower legs. IMPRESSION: 1. Relatively normal LASHON and PVR examination at rest.
[2017-11-20 21:58] VITALS: BP 115/55; PULSE 75; TEMP 98.1; O2SAT 95
--- NOTE | 2017-11-21 00:48 | PN ---
Copied To: Adrien Romero MD Attending MD: Adrien Romero MD DATE: 11/20/2017 SUBJECTIVE: The patient is in bed, in no acute distress. PHYSICAL EXAMINATION: VITAL SIGNS: Temperature is 98, blood pressure is 112/60, respiratory rate 20. HEENT: Examination of HEENT is unremarkable. NECK: Supple. LUNGS: Have decreased breath sounds. HEART: Normal S1 and S2. ABDOMEN: Soft. LABORATORY EXAMINATION: Reveals a white count of 8.1, hemoglobin of 14. Chemistries reveals a BUN of 15, creatinine of 0.9 ASSESSMENT AND PLAN: This is a 57-year-old male who was seen earlier today with morbid obesity, BMI of 42, chronic bronchitis, chronic pain syndrome, substance abuse, lumbar disc herniation, admitted with bilateral lower extremity venous stasis, lymphedema, superimposed cellulitis right greater than the left, on vancomycin. Maybe discharged on p.o. doxycycline. Adrien Romero MD
== END 2017-11-20 23:17 | disposition home or self-care (01) | DRG 603 ==
LOC: ED 15:11 → ERH 18:19 → 2RNO 20:01 → 5RSO 11-19 13:56
PROVIDERS: ADMIT Internal Medicine; ATTEND Hospitalist
DX: L03.115 Cellulitis of right lower limb (principal); Z68.41 Body mass index [BMI] 40.0-44.9, adult; L03.116 Cellulitis of left lower limb; K59.00 Constipation, unspecified; J44.9 Chronic obstructive pulmonary disease, unspecified; E66.01 Morbid (severe) obesity due to excess calories; G89.4 Chronic pain syndrome; M51.26 Other intervertebral disc displacement, lumbar region; I87.2 Venous insufficiency (chronic) (peripheral); I89.0 Lymphedema, not elsewhere classified; E03.9 Hypothyroidism, unspecified; Z90.49 Acquired absence of other specified parts of digestive tract; Z87.891 Personal history of nicotine dependence

== ENCOUNTER 2017-12-01 16:46 | Emergency (ER) | payer MEDICAID ==
[2017-12-01 16:48] VITALS: BMI 42.0
--- NOTE | 2017-12-01 17:37 | ED PDOC ---
Arrival/HPI - General Historian: Patient (`) - History of Present Illness Time/Duration: > week Symptom Onset: Gradual Symptom Course: Unchanged Quality: Pressure Severity Level: 7 - General Time Seen by Provider: 12/01/17 17:01 - History of Present Illness Narrative History of Present Illness (Text): 57 year old male with past medical history of chronic bronchitis, hypothyroidism ,and 3 herniated disks presenting to the ED with bilateral lower extremity edema and pain. Patient describes the pain to be throbbing and 7/10 in severity. Patient states that the swelling started in September and he was admitted to the hospital for the swelling. He was discharged with 5 days of 20 mg of furosemide which he states only helped a little. He states that he came to the ED today because has had difficulty walking the past few days due to worsening leg swelling but states that the leg redness remained unchanged since September. Patient reports no exacerbating or remitting factors. Patient states that he was instructed to follow up with his PMD and digital assistant after being discharged but did not do so due to issues with his medicaid. Patient currently denies chest pain, shortness of breath, nausea, vomiting, constipation, diarrhea, abdominal pain, or urinary symptoms. PMD: Dr. Garrison Donovan ([facility]) Past Medical History - Provider Review Nursing Documentation Reviewed: Yes - Travel History Have you recently traveled outside [place] w/in the past 3 mons?: No - Infectious Disease Hx of Infectious Diseases: None - Cardiac Hx Cardiac Disorders: Yes Hx Peripheral Edema: Yes - Pulmonary Hx Respiratory Disorders: Yes Hx Bronchitis: Yes Hx Chronic Obstructive Pulmonary Disease (COPD): Yes - Neurological Hx Paralysis: No - HEENT Hx HEENT Disorder: No - Renal Hx Renal Disorder: No - Endocrine/Metabolic Hx Endocrine Disorders: No - Hematological/Oncological Hx Blood Disorders: No - Integumentary Hx Dermatological Disorder: Yes - Musculoskeletal/Rheumatological Hx Musculoskeletal Disorders: Yes Hx Back Pain: Yes - Gastrointestinal Hx Gastrointestinal Disorders: Yes (CONSTIPATION) Hx Gall Bladder Disease: Yes (CHOLEYCSTECTOMY) - Genitourinary/Gynecological Hx Genitourinary Disorders: No - Psychiatric Hx Psychophysiologic Disorder: No Hx Substance Use: No - Surgical History Hx Cholecystectomy: Yes Hx Orthopedic Surgery: Yes (SPINAL SX) - Anesthesia Hx Anesthesia Reactions: Yes ("I HAVE A VERY HIGH PAIN TOLERANCE") - Suicidal Assessment Feels Threatened In Home Enviroment: No Family/Social History - Physician Review Nursing Documentation Reviewed: Yes Family/Social History: Neoplasm/Cancer Smoking Status: Former Smoker (10 pack years smoking history) Hx Alcohol Use: No Hx Substance Use: No Hx Substance Use Treatment: No Allergies/Home Meds Allergies/Adverse Reactions: Allergies gabapentin Allergy (Verified 12/01/17 16:59) RASH pregabalin [From Lyrica] Allergy (Verified 12/01/17 16:59) RASH shellfish derived Allergy (Verified 12/01/17 16:59) RASH MARKY Allergy (Uncoded 12/01/17 16:59) ANGIOEDEMA Home Medications: Home Meds Medication Instructions Recorded Confirmed tiZANidine [Zanaflex] 6 mg PO TID 11/16/17 12/01/17 Review of Systems - Physician Review All systems were reviewed & negative as marked: Yes - Review of Systems Constitutional: Normal. absent: Fevers, Night Sweats Eyes: Normal ENT: Normal Respiratory: Cough. absent: SOB, Wheezing Cardiovascular: Normal. absent: Chest Pain Physical Exam Vital Signs Reviewed: Yes Temperature: Afebrile Blood Pressure: Normal Pulse: Regular Respiratory Rate: Normal Appearance: Positive for: Well-Appearing, Non-Toxic, Comfortable Pain Distress: Mild Mental Status: Positive for: Alert and Oriented X 3 - Systems Exam Head: Present: Atraumatic, Normocephalic Pupils: Present: PERRL Extroacular Muscles: Present: EOMI Conjunctiva: Present: Normal Mouth: Present: Moist Mucous Membranes Respiratory/Chest: Present: Clear to Auscultation, Good Air Exchange. No: Respiratory Distress, Accessory Muscle Use, Wheezes, Decreased Breath Sounds, Rales, Rhonchi, Tachypneic Cardiovascular: Present: Regular Rate and Rhythm, Normal S1, S2. No: Murmurs, Rub, Gallop Abdomen: Present: Normal Bowel Sounds. No: Tenderness, Distention, Peritoneal Signs Upper Extremity: Present: Normal Inspection. No: Cyanosis, Edema Lower Extremity: Present: Edema, CALF TENDERNESS, Swelling, Other (Baseline diffuse edema appreciated on bilateral leg from the feet extening to below the knee) Neurological: Present: GCS=15, CN II-XII Intact, Speech Normal Skin: Present: Warm, Dry. No: Rashes, Normal Color (hyperpigmentation seen on bilateral leg) Psychiatric: Present: Alert, Oriented x 3, Normal Insight, Normal Concentration Vital Signs Temp Pulse Resp BP Pulse Ox 12/01/17 21:14 98.5 F 70 18 137/68 100 12/01/17 20:07 129/83 12/01/17 19:27 98.5 F 71 18 141/70 98 12/01/17 19:02 130/96 H 12/01/17 17:01 98.6 F 72 16 132/72 96 Medical Decision Making Reassessment Condition: Re-examined, Improved ED Course and Treatment: 12/01/17 18:56 Patient seen by resident and then evaluated by me. He reports chronic skin changes to his legs since September, but reports that the leg swelling has worsened over the last week. He reports that it improved with lasix he was given on discharge from hospital. DVT study negative. BNP and trop x 1 negative. Cxray negative. Reports improvement of symptoms after diuresis with lasix. Ambulating around the Emergency department without issue and instructed to follow-up with PMD 12/01/17 21:21 (Sherine Jay) Impression: Patient is a 57 year old male presenting to the ED with bilateral lower extremity swelling. Differential Diagnosis included but are not limited to: - DVT - Venous stasis - CHF Plan: -- LE venous duplex -- CXR -- CBC -- CMP -- BNP -- Lasix 40 mg -- Troponin -- TSH, free T4 -- EKG Progress Notes: 12/01/17 19:36 - Pro-BNP: 84.4 - Troponin: <0.01 - TSH/T4: WNL 12/01/17 19:50 - CXR: No active disease - LE venous duplex: No DVT 12/01/17 20:10 - EKG: NSR at 72 bpm - Patient is complaining of LE pain, refused toradol. Percocet ordered. - Patient recieved another dose of lasix IVP. Patient is feeling better and walking around without pain. - Patient is stable for discharge. (Jabari Page) - Lab Interpretations Lab Results: 12/01/17 17:40 12/01/17 17:40 Lab Results 12/01/17 17:40: Free T4 0.84, TSH 3rd Generation 1.92 12/01/17 17:40: Sodium 141, Potassium 3.9, Chloride 100, Carbon Dioxide 33, Anion Gap 11, BUN 12, Creatinine 0.8, Est GFR ( Amer) > 60, Est GFR (Non- Af Amer) > 60, Random Glucose 88, Calcium 9.2, Total Bilirubin 0.6, AST 31, ALT 34, Alkaline Phosphatase 80, Troponin I < 0.01, NT-Pro-B Natriuret Pep 84.4, Total Protein 7.1, Albumin 4.3, Globulin 2.8, Albumin/Globulin Ratio 1.5 12/01/17 17:40: WBC 9.2, RBC 4.41, Hgb 13.9 L, Hct 41.1 L, MCV 93.2, MCH 31.5, MCHC 33.8, RDW 13.2, Plt Count 264, MPV 9.3, Gran % 60.0, Lymph % (Auto) 29.8, Otoe % (Auto) 8.8 H, Eos % (Auto) 1.2 L, Baso % (Auto) 0.2, Gran # 5.51, Lymph # (Auto) 2.7, Otoe # (Auto) 0.8 H, Eos # (Auto) 0.1, Baso # (Auto) 0.02 - RAD Interpretation Radiology Orders: 12/01/17 17:30 CXR [CHEST PORTABLE] [RAD] Stat 12/01/17 17:31 DUPLEX LOWER EXTRM VEIN BILAT [US] Stat - Medication Orders Current Medication Orders: Discontinued Medications Furosemide (Lasix) 40 mg IVP STAT STA Stop: 12/01/17 17:39 Last Admin: 12/01/17 19:02 Dose: 40 mg MAR Blood Pressure Document 12/01/17 19:02 LA (Rec: 12/01/17 19:[id number] Blood Pressure Blood Pressure (100/60-150/90) 130/96 IVP Administration Document 12/01/17 19:02 LA (Rec: 12/01/17 19:03 [id number] Charges for Administration # of IVP Administrations 1 Furosemide (Lasix) 40 mg IVP STAT STA Stop: 12/01/17 19:50 Last Admin: 12/01/17 20:07 Dose: 40 mg MAR Blood Pressure Document 12/01/17 20:07 LA (Rec: 12/01/17 20:08 [id number] Blood Pressure Blood Pressure (100/60-150/90) 129/83 IVP Administration Document 12/01/17 20:07 LA (Rec: 12/01/17 20:08 LA [id number]) Charges for Administration # of IVP Administrations 1 Oxycodone/Acetaminophen (Percocet 5/325 Mg Tab) 1 tab PO STAT STA Stop: 12/01/17 20:14 Last Admin: 12/01/17 20:30 Dose: 1 tab MAR Pain Assessment Document 12/01/17 20:30 LA (Rec: 12/01/17 20:30 [place] [id number]) Pain Reassessment Is this a pain reassessment? No Sleep Is patient sleeping during reassessment? No Presence of Pain Presence of Pain Yes Pain Scale Used Pain Scale Used Numeric Location Left, Right or Bilateral Bilateral Upper or Lower Lower Pain Location Body Site Leg Description Intensity of Pain at present 5 Pain Behavior Guarding Disposition/Present on Arrival - Present on Arrival Any Indicators Present on Arrival: No History of DVT/PE: No History of Uncontrolled Diabetes: No Urinary Catheter: No History of Decub. Ulcer: No History Surgical Site Infection Following: None - Disposition Have Diagnosis and Disposition been Completed?: Yes Disposition Time: 20:43 Patient Plan: Discharge - Disposition Diagnosis: Lower extremity edema Disposition: HOME/ ROUTINE Patient Problems: Current Active Problems Problem Status Onset Edema of lower extremity Acute Condition: IMPROVED Discharge Instructions (ExitCare): Dependent Edema (DC) Additional Instructions: ROBERTA CALDERON, thank you for letting us take care of you today. Your provider was Sherine Jay MD and you were treated for lower extremity swelling. The emergency medical care you received today was directed at your acute symptoms. If you were prescribed any medication, please fill it and take as directed. It may take several days for your symptoms to resolve. Return to the Emergency Department if your symptoms worsen, do not improve, or if you have any other problems. Please contact your doctor or call one of the physicians/clinics you have been referred to that are listed on the Patient Visit Information form that is included in your discharge packet. Bring any paperwork you were given at discharge with you along with any medications you are taking to your follow up visit. Our treatment cannot replace ongoing medical care by a primary care provider outside of the emergency department. Thank you for allowing the [facility] team to be part of your care today. If you had an X-Ray or CT scan: A Radiologist will review the ED reading if any change in treatment is needed we will contact you. If you had a blood, urine, or wound culture: It will take several days for the results, if any change in treatment is needed we will contact you. Follow-up with clinic within 2 days. Return to Emergency department if condition worsens. Take lasixs. Prescriptions: Furosemide [Lasix] 40 mg PO DAILY #10 tablet Referrals: Charo Donovan MD [Primary Care Provider] - Follow up with primary Arianna Morley MD [Medical Doctor] - Follow up with primary [facility] [Outside] - Follow up with primary
[2017-12-01 19:13] LABS: BASO # 0.02 K/mm3 (0.0-2.0); BASO % 0.2 % (0.0-3.0); EOS # 0.1 (0.0-0.7); EOS % 1.2 % (1.5-5.0); GRAN # 5.51 (1.4-6.5); HEMOGLOBIN 13.9 g/dL (14.0-18.0); LYMPH # 2.7 (1.2-3.4); LYMPH % 29.8 % (22.0-35.0); MEAN CELL VOLUME 93.2 fl (80.0-105.0); MEAN CORPUSCULAR HEMOGLOBIN 31.5 pg (25.0-35.0); MEAN CORPUSCULAR HGB CONC 33.8 g/dl (31.0-37.0); MEAN PLATELET VOLUME 9.3 fl (7.0-11.0); MONO # 0.8 (0.1-0.6); MONO % 8.8 % (1.0-6.0); RBC 4.41 10^6/uL (3.5-6.1); RED CELL DISTRIBUTION WIDTH 13.2 % (11.5-14.5); WHITE BLOOD COUNT 9.2 10^3/ul (4.5-11.0)
[2017-12-01 19:22] LABS: ALB/GLOB RATIO 1.5 (1.1-1.8); ALBUMIN 4.3 g/dL (3.0-4.8); ALT/SGPT 34 U/L (7-56); AST/SGOT 31 U/L (17-59); BLOOD UREA NITROGEN 12 mg/dL (7-21); CALCIUM 9.2 mg/dL (8.4-10.5); GFR NON-AFRICAN AMERICAN > 60
[2017-12-01 19:28] VITALS: RESP 18; TEMP 98.5
[2017-12-01 19:34] LABS: B-TYPE NATRIURETIC PEPTIDE 84.4 pg/mL (0-450); TROPONIN I < 0.01 ng/mL
[2017-12-01 19:39] LABS: FREE T4 0.84 ng/dL (0.78-2.19)
[2017-12-01] MEDS ORDERED: Oxycodone/Acetaminophen 5/325 mg Tab PO STA (20:13)
[2017-12-01 21:14] VITALS: BP 137/68; PULSE 70; O2SAT 100
--- NOTE | 2017-12-02 09:12 | RAD ---
Date of service: 12/01/2017 HISTORY: LE swelling COMPARISON: Chest radiographs 09/11/2013. FINDINGS: LUNGS: No active pulmonary disease. PLEURA: No significant pleural effusion identified, no pneumothorax apparent. CARDIOVASCULAR: Normal. OSSEOUS STRUCTURES: No significant abnormalities. VISUALIZED UPPER ABDOMEN: Normal. OTHER FINDINGS: None. IMPRESSION: No interval acute cardiopulmonary disease appreciated.
--- NOTE | 2017-12-02 12:32 | CARD ---
APPROVED REPORT Date of service: 12/01/2017 EKG Measurement Heart [id number] <Conclusion> Normal sinus rhythm Low voltage QRS Borderline ECG
--- NOTE | 2017-12-02 20:34 | US ---
HISTORY: Leg pain and swelling. Evaluate for DVT PHYSICIAN(S): Blade Parekh MD. TECHNIQUE: Duplex sonography and color-flow Doppler with graded compression were used to evaluate the deep venous systems of both lower extremities. The exam is limited by edema FINDINGS: The visualized deep venous systems of both lower extremities are sonographically normal and compressible. Normal wave forms and augmentation are seen. There is no sonographic evidence for deep venous thrombosis in the visualized segments of both lower extremities. IMPRESSION: No sonographic evidence for deep venous thrombosis in the visualized segments of both lower extremities.
== END 2017-12-01 21:53 | disposition home or self-care (01) ==
LOC: ED 16:46
DX: R60.0 Localized edema (principal); E03.9 Hypothyroidism, unspecified; I50.9 Heart failure, unspecified; Z87.891 Personal history of nicotine dependence
CPT/HCPCS: 71045; 80053; 83880; 84439; 84443; 84484; 85025; 93005; 93970; 96374; 96376; 99284; J1940